=== PATIENT | male | born 1945 | race Caucasian/White ===

== ENCOUNTER → 2016-12-07 | Outpatient (CLI) | payer OTHER ==
[~2016-12-07] MED LIST: AMLO-110 PO; ASCO10003 PO; ASPI81TA28 PO; ATEN-173 PO; CALC3OIN TOP; FEXO1TAB46 PO; MULTTAB PO; OLOP0.1S2 OPB; OMEG12006 PO; POLYDRO OPB; SIMV20TA2 PO; TRIA3AER NAE; [UNRECOGNIZED DRUG - OTHER] TOP
--- NOTE | 2016-12-07 16:17 | DIAGNOSTIC IMAGING REPORT ---
MRI THE RIGHT KNEE NO CONTRAST CLINICAL HISTORY: Right knee pain COMPARISON STUDY: Outside radiograph dated 11/08/2016 FINDINGS: Imaging was performed in the sagittal, coronal, and axial planes. There is no evidence of a pathologic joint effusion. There are no areas of marrow edema to indicate occult fracture or bone bruise. The anterior and posterior cruciate ligaments appear intact. The medial and lateral collateral ligaments appear intact. There are degenerative changes present within the patellofemoral joint with chondrosis of the medial patellar facet. No tears of the lateral meniscus are visualized. There is a horizontal tear involving the posterior horn the medial meniscus. IMPRESSION: 1. Tear of the posterior horn the medial meniscus 2. Degenerative changes within the patellofemoral joint with chondrosis of the medial patellar facet Electronically signed by: Dale De Santiago M.D. 12/07/2016 4:16 PM Dictated Date/Time: 12/07/2016 4:12 PM
== END | disposition home or self-care (01) ==
LOC: C.MRIBC 15:02
PROVIDERS: ATTEND Orthopaedic Surgery
DX: S83.241A Other tear of medial meniscus, current injury, right knee, initial encounter (principal); X58.XXXA Exposure to other specified factors, initial encounter

== ENCOUNTER 2023-03-03 09:09 | Observation (INO) ==
--- NOTE | 2023-01-31 15:00 | PAT Medication Instructions ---
Medication Instructions Date of Service January 31, 2023 Home Medications azelastine 137 mcg (0.1 %) nasal spray aerosol 2 spray intranasal BID budesonide 0.5 mg/2 mL suspension for nebulization (Pulmicort) 0.5 mg inhalation BID calcitriol 3 mcg/gram topical ointment 1 applic topical BID PRN Rash clobetasol 0.05 % topical ointment (Temovate) 1 applic topical BID PRN Rash fluorouracil 5 % topical cream (Efudex) 1 applic topical BID PRN Skin Irritation fluticasone propionate 50 mcg/actuation nasal spray,suspension (Flonase Allergy Relief) 1 spray intranasal BID PRN Allergy Symptoms latanoprost 0.005 % eye drops (Xalatan) 1 drp ophthalmic (eye) QPM light mineral oil 1 %-mineral oil 4.5 % (PF) eye drops in dropperette (Soothe XP (PF)) 1 drp ophthalmic (eye) BID PRN Dry Eye(S) olopatadine 0.1 % eye drops 1 drp ophthalmic (eye) BID PRN Dry Eye(S) sertraline 50 mg tablet (Zoloft) 50 mg PO QAM simvastatin 20 mg tablet 20 mg PO QPM Flax Seed Oil 1,000 mg PO QAM acitretin 10 mg capsule 10 mg PO UD amlodipine 5 mg tablet 5 mg PO QAM atenolol 25 mg tablet 25 mg PO QAM fexofenadine 180 mg tablet 180 mg PO QAM vitamin B complex 1 tab PO QAM MEDICATION INSTRUCTIONS: Continue as directed azelastine 137 mcg (0.1 %) nasal spray aerosol 2 spray intranasal BID budesonide 0.5 mg/2 mL suspension for nebulization (Pulmicort) 0.5 mg inhalation BID calcitriol 3 mcg/gram topical ointment 1 applic topical BID PRN Rash (do not use after bathing prior to surgery) clobetasol 0.05 % topical ointment (Temovate) 1 applic topical BID PRN Rash (do not use after bathing prior to surgery) fluorouracil 5 % topical cream (Efudex) 1 applic topical BID PRN Skin Irritation (do not use after bathing prior to surgery) fluticasone propionate 50 mcg/actuation nasal spray,suspension (Flonase Allergy Relief) 1 spray intranasal BID PRN Allergy Symptoms latanoprost 0.005 % eye drops (Xalatan) 1 drp ophthalmic (eye) QPM light mineral oil 1 %-mineral oil 4.5 % (PF) eye drops in dropperette (Soothe XP (PF)) 1 drp ophthalmic (eye) BID PRN Dry Eye(S) olopatadine 0.1 % eye drops 1 drp ophthalmic (eye) BID PRN Dry Eye(S) ASK your prescriber and surgeon acitretin 10 mg capsule 10 mg PO UD STOP taking 2 weeks before surgery Flax Seed Oil 1,000 mg PO QAM DO NOT take the morning of surgery fexofenadine 180 mg tablet 180 mg PO QAM vitamin B complex 1 tab PO QAM Take morning of surgery With a small sip of water, OTHERWISE NOTHING TO EAT OR DRINK AFTER MIDNIGHT: amlodipine 5 mg tablet 5 mg PO QAM atenolol 25 mg tablet 25 mg PO QAM sertraline 50 mg tablet (Zoloft) 50 mg PO QAM Take evening before surgery simvastatin 20 mg tablet 20 mg PO QPM Other Notes If you have any questions please call us at [phone] or [phone] or [phone] or [phone]
--- NOTE | 2023-02-07 13:24 | Anesthesiology Consultation ---
Date of Service February 07, 2023 Assessment & Plan (1) Encounter for pre-operative examination: - Infectious disease screening: Per assessment on 02/07/23: No known infectious disease contacts or current infectious disease symptoms. No noted Covid positive test result in past 90 days. - Outpatient joint pathway: Per OR booking comments, plan for outpatient joint program. Patient seen at [facility] 02/07/23. Patient motivated with good functional status. Post-op home support (general good health). Case reviewed with Dr. Andujar. Patient is not recommended candidate to proceed as outpatient joint pathway from anesthesia perspective (age). Patient and Vaishnavi at surgeon's office made aware. Chart Review Chart Review: Acceptable Risk for Surgery and Patient seen in Pre Admission Testing Teaching & Discussion Pre-Anesthesia Teaching/Discussion Notes: Instructed NPO after midnight before surgery,except medications with 15 cc of water. Medication instructions provided according to the [facility] guidelines. History Surgery Operation Date: 03/03/23 12:20 Proposed Procedures p OP: Right Unicompartment Knee Arthroplasty vs Right Total Knee Arthroplasty - Suraj Su DO Height/Weight Height: 5 ft 8 in Weight: 87.9 kg Allergies Allergy/AdvReac Type Severity Reaction Status Date / Time SILK SUTURES Allergy Severe Severe Uncoded 02/06/23 13:11 skin reaction Medications Home Medications Medication Instructions Recorded Confirmed Last Taken azelastine 137 mcg (0.1 %) nasal 2 spray intranasal BID 01/04/23 01/17/23 Unknown spray aerosol budesonide 0.5 mg/2 mL suspension 0.5 mg inhalation BID 01/04/23 01/17/23 Unknown for nebulization (Pulmicort) calcitriol 3 mcg/gram topical 1 applic topical BID PRN Rash 01/04/23 01/17/23 Unknown ointment clobetasol 0.05 % topical ointment 1 applic topical BID PRN Rash 01/04/23 01/17/23 Unknown (Temovate) fluorouracil 5 % topical cream 1 applic topical BID PRN Skin 01/04/23 01/17/23 Unknown (Efudex) Irritation fluticasone propionate 50 1 spray intranasal BID PRN Allergy 01/04/23 01/17/23 Unknown mcg/actuation nasal Symptoms spray,suspension (Flonase Allergy Relief) latanoprost 0.005 % eye drops 1 drp ophthalmic (eye) QPM 01/04/23 01/17/23 Unknown (Xalatan) light mineral oil 1 %-mineral oil 1 drp ophthalmic (eye) BID PRN Dry 01/04/23 01/17/23 Unknown 4.5 % (PF) eye drops in Eye(S) dropperette (Soothe XP (PF)) olopatadine 0.1 % eye drops 1 drp ophthalmic (eye) BID PRN Dry 01/04/23 01/17/23 Unknown Eye(S) sertraline 50 mg tablet (Zoloft) 50 mg PO QAM 01/04/23 01/17/23 Unknown simvastatin 20 mg tablet 20 mg PO QPM 01/04/23 01/17/23 Unknown Flax Seed Oil 1,000 mg PO QAM 01/17/23 01/17/23 Unknown acitretin 10 mg capsule 10 mg PO UD 01/17/23 01/17/23 Unknown amlodipine 5 mg tablet 5 mg PO QAM 01/17/23 01/17/23 Unknown atenolol 25 mg tablet 25 mg PO QAM 01/17/23 01/17/23 Unknown fexofenadine 180 mg tablet 180 mg PO QAM 01/17/23 01/17/23 Unknown vitamin B complex 1 tab PO QAM 01/17/23 01/17/23 Unknown Past Medical History Medical History Chronic sinusitis Depression Fatty liver Glaucoma Heart valve regurgitation Echo 05/2022: Mild AR/MR/TR HTN (hypertension) Hx of basal cell carcinoma Hx of squamous cell carcinoma Hyperlipidemia Osteoarthritis Psoriasis Exercise / Class Metabolic Activity II 4-5 Yardwork/Stairs/Walk up hill (one FS (no CP, no SOB)) Past Family History Family History Other No family history of adverse response to anesthesia Past Surgical History Surgical History History of Achilles tendon repair History of Mohs micrographic surgery for skin cancer multiple Hx of bilateral cataract extraction Hx of colonoscopy Hx of removal of cyst finger Past Anesthesia History No Hx of Anesthesia Complications and No Family Hx of Anesthesia Complications History of PONV No Hx of PONV and No Hx of Motion Sickness Social History Smoking Status: Never smoker Do You Dip or Chew Tobacco: No Hx Alcohol Use: Yes (2-3 per day) Alcohol type: beer, wine and hard liquor Hx Substance Use: No substance use type: does not use Review of Systems Chronic sinus issues- unchanged. Patient denies chest pain, shortness of breath, dyspnea on exertion, fever, chills, cough, wheezing, palpitations. Physical Exam Vital Signs VITALS BP 126/72 P 56 TEMP 97.7 SP02 96%RA RESP 18 PHYSICAL Full cervical extension range of motion. Full TMJ range of motion. TMD 3.5 finger breaths Mallampati Score 2 Dentition: intact, + caps Lungs: clear throughout to auscultation Cardiac: regular rate and rhythm, no murmurs noted Spine: normal Carotid arteries: negative bruit Extremities: no LE edema Lab Results Anesthesia Preop Results Results Anesthesia Widget: WBC 6.63 K/ul (4.8-10.8) 02/07/23 Hgb 14.8 g/dl (14.0-18.0) 02/07/23 Hct 42.4 % (42.0-52.0) 02/07/23 Plt 180 K/uL (130-400) 02/07/23 Na 136 mmol/L (136-145) 02/07/23 K 4.4 mmol/L (3.5-5.1) 02/07/23 Cl 102 mmol/L (98-107) 02/07/23 CO2 28 mmol/L (21-32) 02/07/23 BUN 20 mg/dl (6-23) 02/07/23 Creat 0.82 mg/dl (0.6-1.4) 02/07/23 Glucose Level 99 mg/dl (70-99(Fasting)) 02/07/23 PT 11.3 Seconds (9.0-12.0) 02/07/23 PTT 25.8 Seconds (21.0-31.0) 02/07/23 INR 1.0 (0.9-1.1) 02/07/23 Blood Type A Positive 02/07/23 Antibody Screen NEGATIVE 02/07/23 Testing Electrocardiogram Date: 02/07/23 SB with first degree AVB with PACs at 52bpm. "Otherwise normal ECG" Chest X-Ray Date: 05/31/22 Findings: + NAD Echocardiogram Date: 05/05/22 LVEF 55-59%. Mildly increased concentric LV wall thickness. Grade 1 diastolic dysfunction. Mild AR/MR/TR. Mildly enlarged aortic root. Stress Test Date: 08/02/17 Type: exercise Stress echo negative for inducible ischemia. Exercise capacity is above average. 95% MPHR. 10.1 METS. LVEF 55-59%. Grade I DD. Mild AR.
[~2023-03-03 09:09] MED LIST changes: +ACETAMINOPHEN 500 MG TAB PO SCH; -AMLO-110 PO; -ASCO10003 PO; -ASPI81TA28 PO; -ATEN-173 PO; +BUPIVACAINE 0.25% PF 30 ML VIAL ONE; +BUPIVACAINE 0.5 % 5 MG/1 ML PF 10ML VIAL ONE; -CALC3OIN TOP; +DEXAMETHASONE SOD INJ 4 MG/ML VIAL ONE; +EPINEPHrine INJ 1 MG/ML AMP ONE; +FAMOTIDINE 20 MG TAB PO SCH; -FEXO1TAB46 PO; +GABAPENTIN 300 MG CAP PO SCH; +LR 500ML BOLUS, THEN 15ML/HR IV SCH; +LR 60ML/HR IV SCH; -MULTTAB PO; -OLOP0.1S2 OPB; -OMEG12006 PO; +ORTHO JOINT MIX INFIL SCH; -POLYDRO OPB; -SIMV20TA2 PO; +TRANEXAMIC ACID 1,000 MG **IV Intra-op IV SCH; +TRANEXAMIC ACID 1,000 MG **IV Pre-op IV SCH; -TRIA3AER NAE; -[UNRECOGNIZED DRUG - OTHER] TOP; +ceFAZolin 2000MG 2,000 MG/15 ML SYR IV SCH; +dexAMETHasone 4 MG TAB PO SCH
--- NOTE | 2023-03-03 10:02 | History & Physical Bridge Note ---
Date of Service March 03, 2023 History & Physical Bridge Note I have examined the patient, reviewed the History & Physical and in the interval since the performance of the History & Physical I have noted the following changes of clinical significance: no changes noted
[2023-03-03] MEDS ORDERED: fentaNYL citrate PF 100 MCG/2 ML VIAL ONE (10:03)
[2023-03-03] MEDS ORDERED: MIDAZOLAM HCL 1 MG/ML 2ML VIAL ONE (10:03)
[2023-03-03] MEDS ORDERED: PROPOFOL IV EMULSION 10 MG/ML 20 ML VIAL IV ONE (10:06)
[2023-03-03] MEDS ORDERED: LIDOCAINE 2% 2 ML VIAL/AMP(20MG/ML) INFIL ONE (10:06)
[2023-03-03] MEDS ORDERED: ONDANSETRON INJ 2 MG/ML 2 ML VIAL IV PRN ×2 (10:19→14:34)
[2023-03-03] MEDS ORDERED: ePHEDrine sulfate 50 MG/ML AMP IV PRN (10:19)
[2023-03-03] MEDS ORDERED: PROMETHAZINE HCL 6.25 MG in SODIUM CHLORIDE 0.9% 50 ML IV PRN (10:19)
[2023-03-03] MEDS ORDERED: ATROPINE SULFATE 0.1 MG/ML 10ML SYR IV PRN (10:19)
[2023-03-03] MEDS ORDERED: fentaNYL citrate PF 100 MCG/2 ML VIAL IV PRN (10:19)
[2023-03-03] MEDS ORDERED: ORTHO JOINT ANESTHETIC ONE (10:30)
[2023-03-03] MEDS ORDERED: ONDANSETRON INJ 2 MG/ML 2 ML VIAL ONE (11:57)
[2023-03-03] MEDS ORDERED: ePHEDrine sulfate 50 MG/ML AMP ONE (12:02)
--- NOTE | 2023-03-03 12:46 | Operative Report ---
PG Post Operative Report Pre & Post Diagnosis Operation Date: 03/03/23 10:40 Pre-Op Diagnosis: Degenerative Joint Disease Right Knee Post-Op Diagnosis: Degenerative Joint Disease Right Knee I identified the patient and participated in the time-out.: Yes Procedure Operation Date: 03/03/23 10:40 Actual Procedures p Right Unicompartment Knee Arthroplasty(Right) - Suraj Su DO Surgeon Suraj Su DO Account Manager Suraj Zaman PA-C Estimated Blood Loss 30 Findings Consistent with Post-Op Diagnosis Specimens Right femoral and tibial bone Description of Procedure Implants used: I used a Estephania persona partial knee replacement with a size 5 femoral component, a size E tibial component, and a 9 mm polyethylene spacer. On March 03, 2023 Topher arrived at [facility] for the above procedure. He was seen in the preoperative holding area and the operative extremity was identified and signed. He was given a preoperative antibiotic, a regional anesthetic, and a spinal anesthetic.. He was taken back to the operating room and laid on table supine position. He was given basic sedation. The right knee was prepped and draped in sterile fashion. A timeout was done. The patient and the operative extremity was properly identified. A midline incision was made just medial to the patella. Dissection was taken down through the fascia. A small mid vastus arthrotomy was used. The medial retinaculum was released. A small portion of fat pad was excised. The medial aspect of the knee was exposed. There was severe osteoarthritis in the medial compartment. The ACL was intact. There was no arthritis in the lateral or patellofemoral compartments. A decision was made to proceed with a partial knee replacement. An external tibial guide was used and 4 mm was resected off the proximal tibia. The knee was then brought to full extension. A distal femoral cutting block was then screwed into place. The distal femur was then resected. The knee was then brought into flexion. A 5 mm femoral implant seem to be the best fit. The cutting block was pinned into place. 2 peg holes were drilled followed by posterior and chamfer cuts. The tibia was then measured to be a size E. The tibial cut guide was then impacted in the place. 2 peg holes were then drilled. The femoral implant was then impacted into place. A size 9 mm polyethylene insert seem to be the best fit. The knee was brought through full range of motion and felt to be stable. All trials were then removed. The final size E tibial component and size 5 femoral component were cemented in place with Palacos cement. Once cement had hardened a 9 mm polyethylene spacer was then snapped into place. The knee was brought through full range of motion and felt to be stable. The surrounding soft tissues were injected with an orthopedic pain control cocktail. The extensor mechanism was closed with #1 Vicryl. Skin was closed with 2-0 Vicryl, 3 oh V-Loc suture, and erica. He was then placed in a soft compressive dressing. He was then taken to the postanesthesia care unit in stable condition. He tolerated the procedure well. Suraj Zaman PA-C, was present for the entire procedure. He was critical for patient positioning, prepping, draping, retraction exposure, wound closure and application of sterile dressing. I attest to the content of the Intraoperative Record and any orders documented therein. Any exceptions are noted below.
--- NOTE | 2023-03-03 13:38 | XRay Report ---
XR knee RT 1 or 2V routine HISTORY: 78 years-old Male Surgical Post Op medial compartment hemiarthroplasty COMPARISON: 08/31/2022 TECHNIQUE: 2 views of the right knee FINDINGS: Medial compartment hemiarthroplasty. Anterior midline skin erica with expected postoperative soft t issue swelling and deep tissue air. Chondrocalcinosis with mild lateral and patellofemoral compartmen t osteoarthritis. Arterial calcifications. IMPRESSION: Medial compartment hemiarthroplasty with expected postoperative changes. ACT 112: Negative or not required by law. The above report was generated using voice recognition software. It may contain grammatical, syntax o r spelling errors. Electronically signed by: George Quiroz M.D. 03/03/2023 1:36 PM
--- NOTE | 2023-03-03 13:38 | Anesthesiology Progress Note ---
Date of Service March 03, 2023 Anesthesia Post Procedure Vital Signs Vital Signs: Temp Pulse Pulse Resp BP Pulse Ox O2 Del Method 03/03/23 13:30 36.3 C L 55 L 17 116/61 98 Nasal Cannula 03/03/23 13:20 56 L 16 116/63 97 Oxymask 03/03/23 13:10 56 L 12 115/62 97 Oxymask 03/03/23 13:04 36.2 C L 62 18 137/66 98 Oxymask 03/03/23 09:36 36.7 C 54 L 20 143/85 H 99 Room Air O2 Flow Rate 03/03/23 13:30 2 03/03/23 13:20 2 03/03/23 13:10 4 03/03/23 13:04 4 03/03/23 09:36 Pain Intensity Right Knee: Pain Intensity: 0 Transfer of Care Handoff Completed per policy Notes Mental Status: alert / awake / arousable and participated in evaluation Nausea / Vomiting: adequately controlled Pain: adequately controlled Airway Patency, RR, SpO2: stable & adequate BP & HR: stable & adequate Hydration State: stable & adequate Neuraxial Anesthesia: was administered and sensory block is resolving Anesthetic Complications: no major complications apparent and Pt Satisfied with anesthetic care
[2023-03-03] MEDS ORDERED: oxyCODONE HCL IR 5 MG TAB (IMMEDIATE RELEASE) PO PRN (14:34)
[2023-03-03] MEDS ORDERED: FLUTICASONE PROPIONATE NA SPR 16 GM BTL PRN (14:34)
[2023-03-03] MEDS ORDERED: CALCITRIOL 3 MCG/GM TOP PRN (14:34)
[2023-03-03] MEDS ORDERED: HYDROmorphone INJ 0.5 MG/0.5 ML SYR IV PRN (14:34)
[2023-03-03] MEDS ORDERED: MAGNESIUM HYDROXIDE SUSP 30 ML UDC PO PRN (14:34)
[2023-03-03] MEDS ORDERED: bisacodyL 10 MG SUPP PR PRN (14:34)
[2023-03-03] MEDS ORDERED: CLOBETASOL PROPIONATE 0.05% OINT 15 GM TUBE EXT PRN (14:34)
[2023-03-03] MEDS ORDERED: NALOXONE HCL 0.4 MG/1 ML VIAL/CARP IV PRN (14:34)
[2023-03-03] MEDS ORDERED: METOCLOPRAMIDE HCL INJ 5 MG/ML 2 ML VIAL IV PRN (14:34)
[2023-03-03] MEDS: SODIUM CHLORIDE 0.9% 1,000 ML IV SCH (15:07)
[2023-03-03] MEDS: ACETAMINOPHEN 500 MG TAB PO SCH ×2 (15:09→20:35)
[2023-03-03] MEDS: KETOROLAC TROMETHAMINE 15 MG/ML VIAL IV SCH ×2 (15:09→20:34)
[2023-03-03] MEDS: OLOPATADINE 0.1% SCH ×2 (15:51→23:37)
[2023-03-03] MEDS: [UNRECOGNIZED DRUG - REMARK] SCH ×2 (15:51→23:37)
[2023-03-03] MEDS: ceFAZolin 2000MG 2,000 MG/15 ML SYR IV SCH (18:43)
[2023-03-03] MEDS: BUDESONIDE 0.5 MG/2 ML VIAL (PULMICORT) INH SCH (20:06)
[2023-03-03] MEDS: DOCUSATE SODIUM 100 MG CAP PO SCH (20:34)
[2023-03-03] MEDS: AZELASTINE HCL 0.1% NASAL 200 SPRAYS/27,400 MCG BTL SCH (20:35)
[2023-03-03] MEDS: ASPIRIN 81 MG ECTAB PO SCH (20:36)
[2023-03-03] MEDS ORDERED: SENNA 8.6 MG TAB PO SCH (21:00)
[2023-03-03] MEDS ORDERED: SIMVASTATIN 20 MG TAB PO SCH (21:00)
[2023-03-03] MEDS ORDERED: LATANOPROST 0.005% OP SOLN 2.5 ML BTL OP SCH (21:00)
[2023-03-04] MEDS: SODIUM CHLORIDE 0.9% 1,000 ML IV SCH (01:37)
[2023-03-04] MEDS: ceFAZolin 2000MG 2,000 MG/15 ML SYR IV SCH (03:26)
[2023-03-04] MEDS: KETOROLAC TROMETHAMINE 15 MG/ML VIAL IV SCH ×2 (03:26→08:33)
[2023-03-04] MEDS: ACETAMINOPHEN 500 MG TAB PO SCH (05:12)
--- NOTE | 2023-03-04 07:42 | Orthopedic Progress Note ---
Date of Service March 04, 2023 Assessment & Plan (1) Status post right partial knee replacement: Overall he is doing very well. He is not having much pain in the right knee. He will be seen by physical therapy today for ambulation and range of motion exercises. He is on aspirin for DVT prophylaxis. The nursing staff can change his dressing after physical therapy today. He can be discharged home later today. He will follow-up orthopedics in 2 weeks. Michael Vu was seen and examined at bedside this morning. Overall he is doing very well. He is not having much pain in the right knee. He has been up and ambulating to the bathroom. He has no complaints.. Review of Systems All systems reviewed & are unremarkable except as noted in HPI & below. Physical Exam On physical examination of the right knee, the dressing is clean and dry. His leg is out full extension. He has active dorsiflexion plantarflexion of the right ankle.. Results & Data Results & Data Laboratory Results . Diagnostic Findings Postoperative x-rays of the right knee show the prosthesis to be in anatomic alignment without any evidence of fracture complication, or loosening. PG Care Time/CCT Total # of Minutes Spent Total Time Spent with Patient: Total time spent is greater than 50% in coordination of care (as documented) at patient's floor/unit and/or counseling patient: Coding Level of Care Code 26272 Post Operative Follow-Up Diagnoses Status post right partial knee replacement Z96.651
--- NOTE | 2023-03-04 07:43 | Discharge Summary ---
Date of Service March 04, 2023 Principal Diagnosis Same as "Discharge Diagnosis" noted below under Discharge Instructions. Discharge Exam On physical examination of the right knee, the dressing is clean and dry. His leg is out full extension. He has active dorsiflexion plantarflexion of the right ankle.. Discharge Data Procedures Performed Operation Date: 03/03/23 10:40 Actual Procedures p Right Unicompartment Knee Arthroplasty(Right) - Suraj Su DO Ordered Studies 03/03/23 05:00 US - OR guided needle placemen Routine Hospital Course (1) Status post right partial knee replacement: On March 03, 2023 Horace arrived at [facility] and underwent a partial knee replacement without complication. Postoperatively he was started on aspirin for DVT prophylaxis and transferred to the general orthopedic floors. His hospital course was uneventful. On postop day #1, his vital signs were stable and his pain was well controlled. He was able to participate well with physical therapy doing ambulation and range of motion exercises. He was then discharged home. He will follow-up with orthopedics in 2 weeks. PG Care Time/CCT Total # of Minutes Spent Total Time Spent with Patient: Total time spent is greater than 50% in coordination of care (as documented) at patient's floor/unit and/or counseling patient: Discharge Plan Discharge Items Patient Disposition: Home - Home Health Services Reason For Visit: POST OP Discharge Diagnosis: Right partial knee replacement Activity: Per Instructions section Non-emergency contact: Surgeon Call non-emergency contact if: your wound has increased redness and your wound has increased drainage Follow-up/Referrals: Vickey Ray MD [Primary Care Provider] - Diet: Regular Addtl Attending Provider Instructions: Activity and Therapy Recommendations: * If you are using [facility] then therapy will be provided at your home until they feel you have accomplished all of your goals. * If you are using [facility] then Physical Therapy will be provided until they feel you are ready to start Outpatient Physical Therapy. * If you are not using home therapy then Outpatient Physical Therapy should start about 3-5 days from your day of surgery. Therapy will last about 6-10 weeks * It is important not to put a pillow under your knee when you are relaxing or sleeping. It is just as important to make sure you are getting your knee perfectly straight as it is to regain your knee bend. * You were shown a series of exercises in the hospital. Do these exercises three times each day including the exercises you were shown in physical therapy. * Get up and walk several times each day. For the first four weeks, try not to stand or walk for more than one hour at a time. If you do stand or walk for more than one hour, you will not hurt anything, but your leg will likely swell. * As you feel comfortable, you may change from the walker or crutches to a cane and then to independent walking. Medications: * Narcotic You will likely be sent home from the hospital with a prescription for the narcotic pain medication that worked best throughout your stay. * Aspirin Most patients will be required to take Aspirin 81mg twice a day for 6 weeks after surgery. This is obtained [id number] and a prescription is not necessary. * Cefadroxil -take the antibiotic twice a day for 10 days to help prevent infections. * Other medications may be prescribed for specific circumstances. If you have any questions, please call the office at . * Resume previous home medications unless otherwise instructed TEDs/Elastic Stockings: The white elastic stockings help limit swelling and prevent blood clots from forming in your legs.~ The more you wear them, the more they work. Wear them for six weeks. Dressing Care: The dressing can be changed after physical therapy on postop day #1. Daily dry dressing changes for a few days, especially if the incision is still draining some. If the incision is not draining then you may leave the erica open to air. If there is a little bit of drainage or if the erica are getting stuck on your clothing then cover the incision with a dry dressing. The erica will be removed at your 2 week follow-up appointment. Showering: You may shower 5 days from the day of surgery as long as the incision is no longer draining. You may shower with the erica exposed. Let soapy water run over the erica and pat them dry. Do not scrub or soak the incision. Things To Watch For: * Drainage from the incision site that occurs more than one week after your surgery. * Increased redness at the incision site. * Fever above 102 degrees Fahrenheit. * Unusual chest pain or shortness of breath. * Call [facility] at with any of the above problems Follow-Up Visit: Follow-up with Dr. Su's PA (Suraj Zaman) 2-3 weeks after your day of surgery. He will remove your erica and answer any questions. If you have any additional questions or concerns, Dr Su is usually in the office at the same time and will be available An appointment was probably scheduled when you signed-up for surgery in the office. If you have any questions call Office Instructions: More detailed instructions as well as Frequently Asked Questions were provided in a folder by our office when you signed-up for surgery. Please review these instructions when you get home. If you have any further questions or concerns, please feel free to call the office at [phone] Pending Studies at Discharge: No Stand-Alone Forms: My [facility] Medications and DC Order Prescriptions: New oxycodone 5 mg Tablet 5 mg PO Q4H PRN (Reason: pain) Qty: 30 0RF cefadroxil 500 mg capsule 500 mg PO BID 10 Days Qty: 20 0RF aspirin 81 mg Tablet,Delayed Release (Dr/Ec) 81 mg PO BID 42 Days Qty: 0 0RF Continued azelastine 137 mcg (0.1 %) aerosol,spray 2 spray intranasal BID Rx Instructions: administer into each nostril budesonide [Pulmicort] 0.5 mg/2 mL suspension for nebulization 0.5 mg inhalation BID calcitriol 3 mcg/gram ointment 1 applic topical BID PRN (Reason: Rash) clobetasol [Temovate] 0.05 % ointment 1 applic topical BID PRN (Reason: Rash) fluorouracil [Efudex] 5 % cream 1 applic topical BID PRN (Reason: Skin Irritation) fluticasone propionate [Flonase Allergy Relief] 50 mcg/actuation spray,suspension 1 spray intranasal BID PRN (Reason: Allergy Symptoms) Rx Instructions: administer into each nostril latanoprost [Xalatan] 0.005 % drops 1 drp ophthalmic (eye) QPM olopatadine 0.1 % drops 1 drp ophthalmic (eye) BID PRN (Reason: Dry Eye(S)) Rx Instructions: separate doses by at least 6-8 hours sertraline [Zoloft] 50 mg tablet 50 mg PO QAM simvastatin 20 mg tablet 20 mg PO QPM Soothe XP (PF) 1-4.5 % dropperette 1 drp ophthalmic (eye) BID PRN (Reason: Dry Eye(S)) atenolol 25 mg tablet 25 mg PO QAM fexofenadine 180 mg Tablet 180 mg PO QAM amlodipine 5 mg tablet 5 mg PO QAM vitamin B complex Tablet 1 tab PO QAM Flax Seed Oil 1,000 mg PO QAM acitretin 10 mg capsule 10 mg PO UD Rx Instructions: once every 3 days Admission Data Admit Date/Time: 03/03/23 13:03 Attending Provider: Suraj Su Admit Provider: Suraj Su Primary Care Provider: Vickey Ray
[2023-03-04] MEDS: BUDESONIDE 0.5 MG/2 ML VIAL (PULMICORT) INH SCH (07:50)
[2023-03-04] MEDS ORDERED: dexAMETHasone 4 MG TAB PO SCH (08:00)
[2023-03-04] MEDS: [UNRECOGNIZED DRUG - REMARK] SCH (08:07)
[2023-03-04] MEDS: OLOPATADINE 0.1% SCH (08:07)
[2023-03-04] MEDS: AZELASTINE HCL 0.1% NASAL 200 SPRAYS/27,400 MCG BTL SCH (08:31)
[2023-03-04] MEDS: ASPIRIN 81 MG ECTAB PO SCH (08:32)
[2023-03-04] MEDS: DOCUSATE SODIUM 100 MG CAP PO SCH (08:32)
[2023-03-04] MEDS ORDERED: SERTRALINE HCL 50 MG TABLET PO SCH (09:00)
[2023-03-04] MEDS ORDERED: amLODIPine BESYLATE 5 MG TAB PO SCH (09:00)
[2023-03-04] MEDS ORDERED: MULTIVITAMIN TAB PO SCH (09:00)
[2023-03-04] MEDS ORDERED: ATENOLOL 25 MG TABLET PO SCH (09:00)
[2023-03-04] MEDS ORDERED: FEXOFENADINE HCL 180 MG TAB PO SCH (09:00)
--- OUTSIDE RECORDS SUMMARY | 2023-03-09 17:53 | External Medical Summary | Summary of Care ---
Author Name Unknown Organization [facility] Address [address] [place] [address] Phone [phone] Care Team Providers Care Headhunter Name Role Phone Vickey Ray MD Primary Care Provider + Reason for Visit * Reason Comments Skin Check Patient is here for FBSE. Patient stated no issues with skin other than top of ears but he also has psoriasis. Patient has history of skin cancer. Patient does have some concern with the Acitretin he said that his eyes are very dry and this medication causes them to be more dry and it blurs his vision. He also said his skin is very dry from it and he does moisturize often. Encounter Details Date Type Department Care Team Description 01/13/2023 Office Visit Dermatology [facility] [place] [address] [place] [address] Stephanie Huntley MD [address] [place] [address] Scar*; Hx of actinic keratosis; Hx of nonmelanoma skin cancer; Psoriasis Allergies Active Allergy Reactions Severity Noted Date Comments Dust Mite Extract 06/16/2014 sneezing Neomycin-Bacitracin Zn-Polymyx Rash Medium 07/22/2015 Other Allergy (See Comments) 06/16/2014 Seasonal, --sneezing, watery eyes documented as of this encounter (statuses as of 01/13/2023) Medications Medication Sig Dispensed Refills Start Date End Date Status PATANOL 0.1 % OP SOLN 1 drop each eye as needed for allergy 0 Active OMEGA 3 1000 MG PO CAPS Take by mouth . Takes one daily 0 08/28/2012 Active clobetasol propionate (TEMOVATE) 0.05 % ointmentIndications: Other psoriasis APPLY TOPICALLY TO AFFECTED AREA(S) TWO TIMES DAILY NEEDED 90 g 2 04/10/2017 Active latanoprost (XALATAN) 0.005 % ophthalmic solution 0 07/02/2018 Activ e Flaxseed, Linseed, (FLAX SEED OIL) 1000 MG Capsule Take 1 Capsule by mouth in the morning. 0 Active Artificial Tear Solution (SOOTHE XP) SOLN Instill into eye daily. 0 Active B-Complex/Vitamin C Oral Tablet (THERAPEUTIC B COMPLEX W/C) Take 1 Tablet by mouth in the morning. 0 02/24/2020 Active Fluorouracil 5 % External Cream (Efudex)Indications: Actinic keratosis apply to affected area on cheek nightly for 2 weeks 40 g 1 05/11/2020 Active Hydrocortisone (Perianal) 2.5 % External Cream (Procto-Med HC) Administer into the rectum 2 times a day. 30 g 1 06/10/2020 Active Calcitriol 3 MCG/GM External Ointment (Vectical)Indication s:Psoriasis apply daily as needed for psoriasis 100 g 3 07/29/2020 Active Fluticasone Propionate 50 MCG/ACT Nasal Suspension (Flonase) USE TWO SPRAYS IN EACH NOSTRIL ONCE DAILY 48 g 1 07/29/2021 Active Additional Information Patient not taking.Reported on 09/20/2022 Budesonide 0.5 MG/2ML Inhalation Suspension (Pulmicort) Place 1 ampule in 8 oz of saline and rinse the nose once a day as directed. 60 mL 12 10/29/2021 Active Ondansetron 8 MG Oral Tablet Disintegrating (Zofran)Indications: Nausea and vomiting, unspecified vomiting type Place on tongue 1 Tablet every 8 hours as needed for Nausea. dissolve on tongue. 14 Tablet 0 02/19/2022 Active Azelastine HCl 137 MCG/SPRAY Nasal Solution USE 2 SPRAYS IN BOTH NOSTRILS DAILY NEEDED FOR RHINITIS 90 mL 2 09/09/2022 Active Simvastatin 20 MG Oral Tablet (Zocor)Indications:H TN, goal below 140/90 TAKE 1 TABLET BY MOUTH AT BEDTIME 90 Tablet 2 09/09/2022 Active Acetaminophen 500 MG Oral Tablet (Tylenol)Indications :Chronic pain of right knee Take 2 Tablets by mouth every 12 hours as needed for Pain, Severe. 100 Tablet 0 09/20/2022 Active Atenolol 25 MG Oral Tablet (Tenormin)Indication s:HTN, goal below 140/90 TAKE 1 TABLET BY MOUTH DAILY 90 Tablet 3 11/11/2022 Active amLODIPine Besylate 5 MG Oral Tablet (Norvasc)Indications :HTN, goal below 140/90 TAKE 1 TABLET BY MOUTH DAILY 90 Tablet 3 11/11/2022 Active Acitretin 10 MG Oral CapsuleIndications:P soriasis TAKE 1 CAPSULE WITH FOOD, EVERY OTHER DAY 45 Capsule 1 12/15/2022 4 Active Sertraline HCl 50 MG Oral Tablet (Zoloft) 1 tablet daily 90 Tablet 1 12/19/2022 Active documented as of this encounter (statuses as of 01/13/2023) Active Problems Problem Noted Date Mild mitral regurgitation 05/06/2022 Moderate aortic regurgitation 10/06/2021 Fatty liver 03/04/2021 Diastolic dysfunction 03/04/2021 Hx of actinic keratosis 10/14/2019 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, in partial remission 01/25/2018 ANABELLA (generalized anxiety disorder) 01/25 Mixed rhinitis 09/20/2017 Seasonal allergic rhinitis due to pollen 09/20/2017 History of hemorrhoids 08/04/2017 IPMN (intraductal papillary mucinous omar plasm) 06/11/2014 Hyperlipidemia 02/11/2014 Psoriasis 02/18/2013 History of nonmelanoma skin cancer 02/18 Overview: 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, BCC L upper arm 06/2021 (Efudex), SCCIS L lateral cheek superior 06/2020 (Efudex), BCC vertex 10/2019, scapula 10/2019, SCCIS L jawline 10/2019, BCC L upper arm 2017, 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 BCC on left upper back - 2013, BCC on right upper back - 2013, BCC & SCC left taoist, back, jawline bilaterally, right neck (distant), others in past HTN, goal below 140/90 02/15/2011 documented as of this encounter (statuses as of 01/13/2023) Resolved Problems Problem Noted Date Resolved Date Mild aortic valve regurgitation 03/04/2021 10/06/2021 Blepharitis of both eyes 09/20/2017 020 Depression with anxiety 01/25/2017 01/26/20 18 Dyslipidemia, goal LDL below 130 02/15/2011 02/11/2014 Allergic rhinitis 02/15/2011 09/20/2017 Hemorrhoids, external without complications 01/2901/25/2017 documented as of this encounter (statuses as of 01/13/2023) Immunizations Name Administration Dates Next Due COVID-19 mRNA, LNP-s, No Pre serve, 2-Dose Series (Moderna) 02/22/2021,06/26/2020,05/29/2020 Covid-19, Mrna, Lnp-s, Pf, B ivalent, 30 Mcg, IM, 12 yrs and above (Pfizer) 11/18/2022 Pneumococcal Conjugate Vacc, 13 Valent (Prevnar) 08/12/2014 Pneumococcal Polysaccharide PPV23 (Pneumovax) 08/24/2015,01/29/2009 Season Influenza, Quad, PF, Adjuvanted, 65+ Yrs, IM (FLUAD) 01/08/2020 Seasonal Influenza, PF, 6 mo ns & Above, IM , (Flulaval) 01/25/2018 Seasonal Influenza, Quadriva lent Hd (Fluzone Hd) 01/10/2022 Seasonal Influenza, Quadriva lent Hd, 65+ Yrs 01/26/2021 Seasonal Influenza, Quadriva lent, No Preserve, IM 01/28/2016,02/16/2015 01/27/2017 Seasonal Influenza, Quadriva lent, No Preserve, Mdck 01/25/2017 Seasonal Influenza, Split, I IV3, With Preserve, Inj 02/11/2014,01/28/2013,01/26/2012,12/31 Seasonal Influenza, Trivalen t, Adjuvanted, 65+ yrs 01/30/2019 TDAP (age 10 and older)(Boostrix) 03/17/2014 Varicella Zoster Vaccine (Adult) 01/29/2010 Zoster Vaccine Recombinant (Shingrix) 04/14/2018 ,11/06/2017 documented as of this encounter Social History Tobacco Use Types Packs/Day Years Used Date Smoking Tobacco: Never Smokeless Tobacco: Never Alcohol Use Standard Drinks/Week Comments Yes 17.5 (1 standard drink = 0.6 oz pure alcohol) 2-3 drinks per day Alcohol Habits Answer Date Recorded How often do you have a drin k containing alcohol? 4 or more times a week 10/02/2019 How many drinks containing a lcohol do you have on a typical day when you are drinking? 1 or 2 10/02/2019 How often do you have six or more drinks on one occasion? Not asked Food Insecurity Answer Date Recorded Within the past 12 months, y ou worried that your food would run out before you got money to buy more. Never true 09/20/2022 Within the past 12 months, t he food you bought just didn't last and you didn't have money to get more. Never true 09/20/2022 Sex Assigned at Date Recorded Male 09/19/2018 8:17 AM E DT Job Start Date Occupation Industry Not on file Not on file Not on file documented as of this encounter Progress Notes * Stephanie Huntley MD - 01/13/2023 10:02 AM EDT SUBJECTIVE: History of Present Illness: Topher Rubin Jr. is a 77 year old male seen today for follow up - skin check. Date Last Appointment: 06/20/2022 (in office), Visit date not found (telemedicine) No new concerns. Acitretin is worsening his dry eye symptoms. Psoriasis has been under control. Has calcitriol and clobetasol at home. Hx AK and NMSC - SCC L cheek and preauricular 06/2022, BCC L upper arm 06/2021 (Efudex), SCCIS L lateral cheek superior 06/2020 (Efudex), BCC vertex 10/2019, scapula 10/2019, SCCIS L jawline 10/2019, BCC Lupper arm 2017, 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, BCC on left upper back - 2013, BCC on right upperback - 2013, BCC & SCC left taoist, back, jawline bilaterally, right neck (distant), others in past Hx Efudex Golfs, is my pt REVIEW OF SYSTEMS: SKIN: No other new or changing moles. HEME/LYMPH: No new or enlarging lumps or bumps. Dry eyes as above MEDICA TIONS: Current Outpatient Medications Medication Sig Dispense Refill PATANOL 0.1 % OP SOLN 1 drop each eye as needed for allergy OMEGA 3 1000 MG PO CAPS Take by mouth . Takes one daily clobetasol propionate (TEMOVATE) 0.05 % ointment APPLY TOPICALLY TO AFFECTED AREA(S) TWO TIMES DAILY NEEDED 90 g 2 latanoprost (XALATAN) 0.005 % ophthalmic solution Flaxseed, Linseed, (FLAX SEED OIL) 1000 MG Capsule Take 1 Capsule by mouth in the morning. Artificial Tear Solution (SOOTHE XP) SOLN Instill into eye daily. B-Complex/Vitamin C Oral Tablet (THERAPEUTIC B COMPLEX W/C) Take 1 Tablet by mouth in the morning. Fluorouracil 5 % External Cream (Efudex) apply to affected area on cheek nightly for 2 weeks 40 g 1 Hydrocortisone (Perianal) 2.5 % External Cream (Procto-Med HC) Administer into the rectum 2 times aday. 30 g 1 Calcitriol 3 MCG/GM External Ointment (Vectical) apply daily as needed for psoriasis 100 g 3 Fluticasone Propionate 50 MCG/ACT Nasal Suspension (Flonase) USE TWO SPRAYS IN EACH NOSTRIL ONCE DAILY (Patient not taking: Reported on 09/20/2022) 48 g 1 Budesonide 0.5 MG/2ML Inhalation Suspension (Pulmicort) Place 1 ampule in 8 oz of saline and rinse the nose once a day as directed. 60 mL 12 Ondansetron 8 MG Oral Tablet Disintegrating (Zofran) Place on tongue 1 Tablet every 8 hours as needed for Nausea. dissolve on tongue. 14 Tablet 0 Azelastine HCl 137 MCG/SPRAY Nasal Solution USE 2 SPRAYS IN BOTH NOSTRILS DAILY NEEDED FOR RHINITIS 90 mL 2 Simvastatin 20 MG Oral Tablet (Zocor) TAKE 1 TABLET BY MOUTH AT BEDTIME 90 Tablet 2 Acetaminophen 500 MG Oral Tablet (Tylenol) Take 2 Tablets by mouth every 12 hours as needed for Pain, Severe. 100 Tablet 0 Atenolol 25 MG Oral Tablet (Tenormin) TAKE 1 TABLET BY MOUTH DAILY 90 Tablet 3 amLODIPine Besylate 5 MG Oral Tablet (Norvasc) TAKE 1 TABLET BY MOUTH DAILY 90 Tablet 3 Acitretin 10 MG Oral Capsule TAKE 1 CAPSULE WITH FOOD, EVERY OTHER DAY 45 Capsule 1 Sertraline HCl 50 MG Oral Tablet (Zoloft) 1 tablet daily 90 Tablet 1 No current facility-administered medications for this visit. ALLERG IES: Neosporin [neomycin-bacitracin zn-polymyx], Dust mite extract, and Other allergy (see comments) OBJECTIVE: GEN: Healthy, alert, no distress, appears oriented, pleasant, and cooperative. SKIN: Detailed exam of hair, face including lids and lips, neck, chest, abdomen, back, bilateral upper ext. (arm, hand, fingers), bilateral lower ext. (leg, foot, toes), and palpation of scalp completed and are normal except: 1. Head/neck, upper body - scars 2. Back and upper arms have few scaly pink thin plaques, small ASSESS MENT/PLAN: 1. Scars - Hx NMSC - no evidence of recurrence Discussed sun protection with patient including proper use of sunscreens and protective clothing. ABCDs explained. 2. Psoriasis, guttate features, admixed in areas of photodamage - BSA: 1-3%, Special Site: None; Status: same. Occasional flares Pt would like to remain on acitretin but decrease to 10 mg every 3rd day instead of every other day, will monitor (pt on it for chemoprevention and psoriasis, wants to decrease with dry eye symptoms), due for labs with PCP this winter Follow-up: 6 months There were no barriers tolearning and no other pain was related to today's visit. The patient and/or person accompanying patient demonstrates understanding of the visit and treatment. Stephanie Huntley MD 01/13/2023 10:02 AM documented in this encounter Nursing Notes * Ute Arandasagar, RANJAN - 01/13/2023 9:37 AM EDT Patient identified by name and date of . Do you have any concerns about pain management for today's visit? No Living Will or Advance Directive for Health Care as noted on problem list. [facility] is a way you can talk to your provider online through e-mail. Would you like to sign up? I can activate it for you? ALREADY ACTIVE Chief Complaint Patient presents with Skin Check Patient is here for FBSE. Patient stated no issues with skin other than top of ears but he also haspsoriasis. Patient has history of skin cancer. Patient does have some concern with the Acitretin hesaid that his eyes are very dry and this medication causes them to be more dry and it blurs his vision. He also said his skin is very dry from it and he does moisturize often. documented in this encounter Plan of Treatment Upcoming Encounters Date Type Specialty Care Team Description 04/20/2023 Office Visit Internal Medicine Vickey Ray MD [address] [facility] [place] [place] [address] 07/17/2023 Office Visit Dermatology Vickey Ambrosio MD [address] [facility] [place] [address] Scheduled Procedures Name Priority Associated Diagnoses Date/Ti me ROBOTIC ARTHROPLASTY KNEE TOTAL Knee osteoarthritis COLONOSCOPY FLEXIBLE PROXIMAL DIAGNOSTIC Recall History of colon polyps Health Maintenance Due Date Last Done Comments GFR 05/31/2023 05/31/2022, 03/01, 03/05/2021, Additional history exists COLONOSCOPY-EVERY 3 YRS AGES 18-100 06/16/2023 06/16/2020, 06/16/2020, 02/02/2018, Additional history exists Depression Screening 09/21/2023 09/20/2022 DTaP,Tdap,and Td Vaccines (2 - Td or Tdap) 03/17/2024 03/17/2014 Albumin/Creatinine Ratio 10/06/2024 10/06/2021, 01/29 Pneumococcal Vaccine: 65+ Years Completed 08/24/2015, 08/12/2014, 01/29/2009 Zoster Vaccines Completed 04/14/2018, 12/2017, 01/29/2010 Hepatitis C Screening Completed 07/09/2021 COVID-19 Vaccine Completed 11/18/2022, , 06/26/2020, Additional history exists Influenza Vaccine (FLU shot) Completed 09/2022, 01/10/2022, 01/26/2021, Additional history exists GARDASIL-HPV IMMUNIZATION SERIES Aged Out No longer eligible based on patient's age to complete this topic Hepatitis B Aged Out No longer eligi ble based on patient's age to complete this topic MENINGOCOCCAL (MENACTRA/MENVEO) Aged Out No longer eligible based on patient's age to complete this topic documented as of this encounter Medical Devices Not on filedocumented as of this encounter Visit Diagnoses Diagnosis Scar- Primary Scar condition and fibrosis of skin Hx of actinic keratosis Personal history of diseases of skin and subcutaneous tissue Hx of nonmelanoma skin cancer Personal history of other malignant neoplasm of skin Psoriasis Other psoriasis documented in this encounter Care Teams Headhunter Relationship Specialty Start Date End Date Vickey Ray MD [address] [place] [address], [place] [address] PCP - General Internal Medicine 07/30/19 documented as of this encounter
--- OUTSIDE RECORDS SUMMARY | 2023-03-09 17:53 | External Medical Summary | Summary of Care ---
Author Name Unknown Organization [facility] Address [address] [place] [address] Phone [phone] Care Team Providers Care Navy Material Inspector Name Role Phone Vickey Vail MD Primary Care Provider + Reason for Visit * Reason Onset Date Comments Medication Refill 12/19/2022 Encounter Details Date Type Department Care Team Description 12/19/2022 Refill General Internal Medicine [facility] [address] [facility] [place] [id number] Vickey Vail MD [address] [place] [address] Allergies Active Allergy Reactions Severity Noted Date Comments Dust Mite Extract 06/16/2014 sneezing Neomycin-Bacitracin Zn-Polymyx Rash Medium 07/22/2015 Other Allergy (See Comments) 06/16/2014 Seasonal, --sneezing, watery eyes documented as of this encounter (statuses as of 02/06/2023) Medications Medication Sig Dispensed Refills Start Date End Date Status PATANOL 0.1 % OP SOLN 1 drop each eye as needed for allergy 0 Active OMEGA 3 1000 MG PO CAPS Take by mouth . Takes one daily 0 08/28/2012 Active clobetasol propionate (TEMOVATE) 0.05 % ointmentIndications :Other psoriasis APPLY TOPICALLY TO AFFECTED AREA(S) TWO [...] 02/24/2020 Active Fluorouracil 5 % External Cream (Efudex)Indications :Actinic keratosis apply to affected area on cheek nightly for 2 weeks 40 g 1 05/11/2020 Active Hydrocortisone (Perianal) 2.5 % External Cream (Procto-Med HC) Administer into the rectum 2 times a day. 30 g 1 06/10/2020 Active Calcitriol 3 MCG/GM External Ointment (Vectical)Indicatio ns:Psoriasis apply daily as needed for psoriasis 100 [...] Active Ondansetron 8 MG Oral Tablet Disintegrating (Zofran)Indications :Nausea and vomiting, unspecified vomiting type Place on tongue 1 Tablet every 8 hours as needed for Nausea. dissolve on tongue. 14 Tablet 0 02/19/2022 Active Azelastine HCl 137 MCG/SPRAY Nasal Solution USE 2 SPRAYS IN BOTH NOSTRILS DAILY NEEDED FOR RHINITIS 90 mL 2 09/09/2022 Active Simvastatin 20 MG Oral Tablet (Zocor)Indications: HTN, goal below 140/90 TAKE 1 TABLET BY MOUTH AT BEDTIME 90 Tablet 2 09/09/2022 Active Acetaminophen 500 MG Oral Tablet (Tylenol)Indication s:Chronic pain of right knee Take 2 Tablets by mouth every 12 hours as needed for Pain, Severe. 100 Tablet 0 09/20/2022 Active Atenolol 25 MG Oral Tablet (Tenormin)Indicatio ns:HTN, goal below 140/90 TAKE 1 TABLET BY MOUTH DAILY 90 Tablet 3 11/11/2022 Active amLODIPine Besylate 5 MG Oral Tablet (Norvasc)Indication s:HTN, goal below 140/90 TAKE 1 TABLET BY MOUTH DAILY 90 Tablet 3 11/11/2022 Active Acitretin 10 MG Oral CapsuleIndications: Psoriasis TAKE 1 CAPSULE WITH FOOD, EVERY OTHER DAY 45 Capsule 1 12/15/2022 12/15/19 24 Active Sertraline HCl 50 MG Oral Tablet (Zoloft) 1 tablet daily 90 Tablet 1 12/19/2022 Active Sertraline HCl 50 MG Oral Tablet (Zoloft) 1 tablet daily 90 Tablet 3 12/23/2021 12/20/19 23 Discontinue d(Refill) Acitretin 10 MG Oral CapsuleIndications: Psoriasis TAKE 1 CAPSULE BY MOUTH EVERY OTHER DAY WITH FOOD 45 Capsule 1 12/20/2021 12/21/19 23 documented as of this encounter (statuses as of 02/06/2023) Active Problems Problem Noted Date Mild mitral [...] back - 2013, BCC & SCC left orthodoxy, back, jawline bilaterally, right neck (distant), others in past HTN, goal below 140/90 02/15/2011 documented as of this encounter (statuses as of 02/06/2023) Resolved Problems Problem Noted Date Resolved Date Mild aortic valve regurgitation 03/04/2021 10/06/2021 Blepharitis of both eyes 09/20/2017 020 Depression with anxiety 01/25/2017 01/26/20 18 Dyslipidemia, goal LDL below 130 02/15/2011 02/11/2014 Allergic rhinitis 02/15/2011 09/20/2017 Hemorrhoids, external without complications 01/2901/25/2017 documented as of this encounter (statuses as of 02/06/2023) Immunizations Name Administration Dates Next Due COVID-19 mRNA, LNP-s, No Pre serve, 2-Dose Series (Moderna) 02/22/2021,06/26/2020,05/29/2020 COVID-19, MRNA-LNP, PF, 30 M CG/0.3 mL, 12 yrs and above, IM (Pfizer) 11/18/2022 Pneumococcal Conjugate Vacc, 13 Valent (Prevnar) 08/12/2014 Pneumococcal Polysaccharide PPV23 (Pneumovax) 08/24/2015,01/29/2009 SEASONAL INFLUENZA, PF, 6 M & Above, IM , (FLULAVAL or FLUZONE) 01/25/2018 Season Influenza, Quad, PF, Adjuvanted, 65+ Yrs, IM (FLUAD) 01/08/2020 Seasonal Influenza, Quadriva lent Hd (Fluzone Hd) [...] on file documented as of this encounter Miscellaneous Notes * Telephone Encounter - Vickey Vail MD - 12/19/2022 3:52 PM EDTSigned Prescriptions: Disp Refills Sertraline HCl 50 MG Oral Tablet (Zoloft) 90 Tab*1 Si tablet daily Authorizing Provider: VICKEY VAIL * Telephone Encounter - Liz Smith LPN - 12/19/2022 3:34 PM EDTPending Prescriptions: Disp Refills Sertraline HCl 50 MG Oral Tablet (Zoloft) 90 Tab*1 Si tablet daily * Telephone Encounter - Rocio Vinson - 12/19/2022 1:06 PM EDT Did you pend patient's preferred pharmacy and medication before forwarding?yes Pharmacy: [id number] Pending Prescriptions: Disp Refills Sertraline HCl 50 MG Oral Tablet (Zoloft) 90 Tab*3 Si tablet daily Last Visit: 09/20/2022 (in office), 08/23/2019 (telemedicine) Next Visit: 04/20/2023 If no future appointments scheduled, and last appointment is greater than a year ago, please schedule patient for a follow-up appointment Last date the medication was ordered: 12/23/21 Is this request for a controlled substance?No Urine Drug Screen:No results found for this or any previous visit. Patient Phone Numbers Labs: Lab Results Component Value Date/Time CREAT 0.8 05/31/2022 01:35 PM CREAT 0.8 02/25/2020 07:04 AM POTASSIUM 4.3 05/31/2022 01:35 PM POTASSIUM 5.0 02/25/2020 07:04 AM TSH 2.73 05/31/2022 01:35 PM TSH 3.60 02/18/2019 07:03 AM LDLCALC 135 (H) 03/11/2022 08:52 AM LDLCALC 116 02/25/2020 07:04 AM LDLDIRECT NOT APPLICABLE 02/25/2020 07:04 AM ALT 47 05/31/2022 01:35 PM ALT 42 02/25/2020 07:04 AM documented in this encounter Plan of Treatment Upcoming Encounters Date Type Specialty Care Team Description 04/20/2023 Office Visit Internal Medicine Vickey Vail MD [address] [place] [address] 07/17/2023 Office Visit Dermatology Vickey Ambrosio MD [address] [place] [address] Scheduled Procedures Name Priority Associated Diagnoses Date/Ti me COLONOSCOPY FLEXIBLE PROXIMAL DIAGNOSTIC Recall History of [...] 08/24/2015, 08/12/2014, 01/29/2009 Zoster Vaccines Completed 04/14/2018, 0712/2017, 01/29/2010 Hepatitis C Screening Completed 07/09/2021 COVID-19 [...] Not on filedocumented as of this encounter Care Teams Navy Material Inspector Relationship Specialty Start Date End Date Vickey Vail MD [address] [place] [address] PCP - General Internal Medicine 07/30/19 documented as of this encounter
--- OUTSIDE RECORDS SUMMARY | 2023-03-09 17:53 | External Medical Summary | Summary of Care ---
Author Name Unknown Organization [facility] Address [address] [place] [address] Phone [phone] Care Team Providers Care Skydiving Instructor Name Role Phone Vickey Ray MD Primary Care Provider + Encounter Details Date Type Department Care Team Description 01/03/2023 Specialty Pharmacy [facility], [address] [address] Medication, [place] [facility], [address] [address] Allergies Active Allergy Reactions Severity Noted Date Comments Dust Mite Extract 06/16/2014 sneezing Neomycin-Bacitracin Zn-Polymyx Rash Medium 07/22/2015 Other Allergy (See Comments) 06/16/2014 Seasonal, --sneezing, watery eyes documented as of this encounter (statuses as of 01/03/2023) Medications Medication Sig Dispensed Refills Start Date [...] EVERY OTHER DAY 45 Capsule 1 12/15/2022 Active Sertraline HCl 50 MG Oral Tablet (Zoloft) 1 tablet daily 90 Tablet 1 12/19/2022 Active documented as of this encounter (statuses as of 01/03/2023) Active Problems Problem Noted Date Mild mitral [...] of nonmelanoma skin cancer 02/18 Overview: Hx BCC L upper arm 06/2021 (Efudex), SCCIS L lateral cheek superior 06/2020 (Efudex), BCC vertex 10/2019, scapula 10/2019, SCCIS L jawline 10/2019, BCC L upper arm 2017, 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 BCC on left upper back - 2013, BCC on right upper back - 2013, BCC &SCC left [facility], back, jawline bilaterally, right neck (distant), others in past HTN, goal below 140/90 02/15/2011 documented as of this encounter (statuses as of 01/03/2023) Resolved Problems Problem Noted Date Resolved Date Mild aortic valve regurgitation 03/04/2021 10/06/2021 Blepharitis of both eyes 09/20/2017 020 Depression with anxiety 01/25/2017 01/26/20 18 Dyslipidemia, goal LDL below 130 02/15/2011 02/11/2014 Allergic rhinitis 02/15/2011 09/20/2017 Hemorrhoids, external without complications 01/2901/25/2017 documented as of this encounter (statuses as of 01/03/2023) Immunizations Name Administration Dates Next Due COVID-19 [...] as of this encounter Progress Notes * Alycia Augustin CPhT - 01/03/2023 10:32 AM EDT Prescribed medication: Medication: acitretin Shipment date: 01/09 Delivery method: Specialty Mail Location Medication Delivered too? [address] [facility] [phone] Alycia Augustin CPhT [facility] 01/03/2023,10:32 AM documented in this encounter Plan of Treatment Upcoming Encounters Date Type Specialty Care Team Description 01/13/2023 Office Visit Dermatology Stephanie Huntley MD [address] [place] [address] 04/20/2023 Office Visit Internal Medicine Vickey Ray MD [address] [place] [address] Scheduled Procedures Name Priority Associated Diagnoses Date/Ti me ROBOTIC ARTHROPLASTY KNEE TOTAL Knee osteoarthritis COLONOSCOPY FLEXIBLE PROXIMAL DIAGNOSTIC Recall History of colon polyps Health Maintenance Due Date Last Done Comments Influenza Vaccine (FLU shot) (#1) 2022 01/10/2022, 01/26/2021, 01/08/2020, Additional history exists GFR 05/31/2023 05/31/2022, 03/01, 03/05/2021, Additional history exists COLONOSCOPY-EVERY 3 YRS AGES 18-100 06/16/2023 06/16/2020, 06/16/2020, 02/02/2018, Additional history exists Depression Screening, Annual for Pts 12 and Over 09/21/2023 09/20/2022 DTaP,Tdap,and Td Vaccines (2 - Td or Tdap) 03/17/2024 03/17/2014 Albumin/Creatinine Ratio 10/06/2024 10/06/2021, 01/29 Pneumococcal Vaccine: 65+ Years Completed 08/24/2015, 08/12/2014, 01/29/2009 Zoster Vaccines Completed 04/14/2018, 12/2017, 01/29/2010 Hepatitis C Screening Completed 07/09/2021 COVID-19 Vaccine Completed 11/18/2022, , 06/26/2020, Additional history exists GARDASIL-HPV IMMUNIZATION SERIES Aged [...] filedocumented as of this encounter Care Teams Skydiving Instructor Relationship Specialty Start Date End Date Vickey Ray MD [address] [place] [id number] PCP - General Internal Medicine 07/30/19 documented as of this encounter
--- OUTSIDE RECORDS SUMMARY | 2023-03-09 17:53 | External Medical Summary | Summary of Care ---
Author Name Unknown Organization [facility] Address [address] [place] [address] Phone [phone] Care Team Providers Care Personnel Consultant Name Role Phone Vickey Vail MD Primary Care Provider + Reason for Visit * Reason Onset Date Comments Medication Refill 12/19/2022 Encounter Details Date Type Department Care Team Description 12/19/2022 Refill General Internal Medicine [facility] [address] [facility] [place] [id number] Vickey Vail MD [address] [place] [id number] Allergies Active Allergy Reactions Severity Noted Date Comments Dust Mite Extract 06/16/2014 sneezing Neomycin-Bacitracin Zn-Polymyx Rash Medium 07/22/2015 Other Allergy (See Comments) 06/16/2014 Seasonal, --sneezing, watery eyes documented as of this encounter (statuses as of 12/19/2022) Medications Medication Sig Dispensed Refills Start Date [...] on tongue. 14 Tablet 0 02/19/2022 Active Acitretin 10 MG Oral CapsuleIndications: Psoriasis TAKE 1 CAPSULE BY MOUTH EVERY OTHER DAY WITH FOOD 45 Capsule 1 12/20/2021 3 Active Azelastine HCl 137 MCG/SPRAY Nasal Solution [...] 1 tablet daily 90 Tablet 3 12/23/2021 3 Discontinu ed(Refill) documented as of this encounter (statuses as of 12/19/2022) Active Problems Problem Noted Date Mild mitral [...] upper back - 2013, BCC &SCC left buddhism, back, jawline bilaterally, right neck (distant), others in past HTN, goal below 140/90 02/15/2011 documented as of this encounter (statuses as of 12/19/2022) Resolved Problems Problem Noted Date Resolved Date Mild aortic valve regurgitation 03/04/2021 10/06/2021 Blepharitis of both eyes 09/20/2017 020 Depression with anxiety 01/25/2017 01/26/20 18 Dyslipidemia, goal LDL below 130 02/15/2011 02/11/2014 Allergic rhinitis 02/15/2011 09/20/2017 Hemorrhoids, external without complications 01/2901/25/2017 documented as of this encounter (statuses as of 12/19/2022) Immunizations Name Administration Dates Next Due COVID-19 mRNA, LNP-s, No Pre serve, 2-Dose Series (Moderna) 02/22/2021,06/26/2020,05/29/2020 Pneumococcal Conjugate Vacc, 13 Valent (Prevnar) 08/12/2014 [...] pharmacy and medication before forwarding?yes Pharmacy: [id number] [place] Pending Prescriptions: Disp Refills Sertraline HCl 50 [...] Office Visit Dermatology Stephanie Huntley MD [address] [place] [address] 04/20/2023 Office Visit Internal Medicine Vickey Vail MD [address] [place] [address] Scheduled Procedures Name Priority Associated Diagnoses Date/Ti me ROBOTIC ARTHROPLASTY KNEE TOTAL Knee osteoarthritis COLONOSCOPY FLEXIBLE PROXIMAL DIAGNOSTIC Recall History of colon polyps Health Maintenance Due Date Last Done Comments COVID-19 Vaccine (4 - Moderna series) 04/19/2021 02/22/2021, 06/26/2020, 05/29/2020 Influenza Vaccine (FLU shot) (#1) 2022 01/10/2022, [...] 12/2017, 01/29/2010 Hepatitis C Screening Completed 07/09/2021 GARDASIL-HPV IMMUNIZATION SERIES Aged Out No longer eligible based on patient's age to complete this topic Hepatitis B Aged Out No longer eligi ble based on patient's age to complete this topic MENINGOCOCCAL (MENACTRA/MENVEO) Aged Out No longer eligible based on patient's age to complete this topic documented as of this encounter Medical Devices Not on filedocumented as of this encounter Care Teams Personnel Consultant Relationship Specialty Start Date End Date Vickey Vail MD [address] [place] [address], [place] [phone] PCP - General Internal Medicine 07/30/19 documented as of this encounter
--- OUTSIDE RECORDS SUMMARY | 2023-03-09 17:54 | External Medical Summary | Summary of Care ---
Author Name Unknown Organization [facility] Address [address] [place] [address] Phone [phone] Care Team Providers Care Imaging Assistant Name Role Phone Vickey Ray MD Primary Care Provider + Encounter Details Date Type Department Care Team Description 12/06/2022 Telephone [facility]opa[facility] [address] [facility] [place] [address] Rigo Suarez, [address] [facility] [place] [address] Allergies Active Allergy Reactions Severity Noted Date Comments Dust Mite Extract 06/16/2014 sneezing Neomycin-Bacitracin Zn-Polymyx Rash Medium 07/22/2015 Other Allergy (See Comments) 06/16/2014 Seasonal, --sneezing, watery eyes documented as of this encounter (statuses as of 12/06/2022) Medications Medication Sig Dispensed Refills Start Date [...] as directed. 60 mL 12 10/29/2021 Active Sertraline HCl 50 MG Oral Tablet (Zoloft) 1 tablet daily 90 Tablet 3 12/23/2021 Active Ondansetron 8 MG Oral Tablet Disintegrating (Zofran)Indications: Nausea and vomiting, unspecified vomiting type Place on tongue 1 Tablet every 8 hours as needed for Nausea. dissolve on tongue. 14 Tablet 0 02/19/2022 Active Acitretin 10 MG Oral CapsuleIndications:P soriasis TAKE 1 CAPSULE BY MOUTH EVERY OTHER DAY WITH FOOD 45 Capsule 1 12/20/2021 3 Active Acitretin 10 MG Oral CapsuleIndications:P soriasis TAKE 1 CAPSULE WITH FOOD, EVERY OTHER DAY 45 Capsule 1 12/16/2021 3 Active Azelastine HCl 137 MCG/SPRAY Nasal [...] MOUTH DAILY 90 Tablet 3 11/11/2022 Active documented as of this encounter (statuses as of 12/06/2022) Active Problems Problem Noted Date Mild mitral [...] upper back - 2013, BCC &SCC left [facility], back, jawline bilaterally, right neck (distant), others in past HTN, goal below 140/90 02/15/2011 documented as of this encounter (statuses as of 12/06/2022) Resolved Problems Problem Noted Date Resolved Date Mild aortic valve regurgitation 03/04/2021 10/06/2021 Blepharitis of both eyes 09/20/2017 020 Depression with anxiety 01/25/2017 01/26/20 18 Dyslipidemia, goal LDL below 130 02/15/2011 02/11/2014 Allergic rhinitis 02/15/2011 09/20/2017 Hemorrhoids, external without complications 01/2901/25/2017 documented as of this encounter (statuses as of 12/06/2022) Immunizations Name Administration Dates Next Due COVID-19 mRNA, LNP-s, No Pre serve, 2-Dose Series (Moderna) 02/22/2021,06/26/2020,05/29/2020 Pneumococcal Conjugate Vacc, 13 Valent (Prevnar) 08/12/2014 Pneumococcal Polysaccharide PPV23 (Pneumovax) 08/24/2015,01/29/2009 Seasonal Influenza, Quadriva lent Hd (Fluzone Hd) 01/10/2022 Seasonal Influenza, Quadriva lent Hd, 65+ Yrs 01/26/2021 Seasonal Influenza, Quadriva lent, No Preserve, 6 Mons & Above, IM 01/25/2018 Seasonal Influenza, Quadriva lent, No Preserve, Adjuvanted, 65+ Yrs, IM 01/08/2020 Seasonal Influenza, Quadriva lent, No Preserve, IM [...] encounter Miscellaneous Notes * Telephone Encounter - BRITTANY Henao - 12/06/2022 11:18 AM EDT I called patient to schedule surgery on Monday03/06/23. Patient said he has some trips planned and will call us when he is back to schedule surgery. documented in this encounter Plan of Treatment Upcoming Encounters Date Type Specialty Care Team Description 01/13/2023 Office Visit Dermatology Stephanie Huntley MD [address] [place] [address] 04/20/2023 Office Visit Internal Medicine Vickey Ray MD [address] [facility] [place] [address] Scheduled Procedures Name Priority Associated Diagnoses Date/Ti [...] filedocumented as of this encounter Care Teams Imaging Assistant Relationship Specialty Start Date End Date Vickey Ray MD [address] [place] [address], [place] [address] PCP - General Internal Medicine 07/30/19 documented as of this encounter
--- OUTSIDE RECORDS SUMMARY | 2023-03-09 17:54 | External Medical Summary | Summary of Care ---
Author Name Unknown Organization [facility] Address [address] [place] [address] Phone [phone] Care Team Providers Care Manager Patient Name Role Phone Vickey Ray MD Primary Care Provider + Reason for Visit * Reason Comments NEW PATIENT Right knee OA * Evaluate & Treat - Unlimited Visits (Within 30 days (routine)) - Authorized Specialty Diagnoses / Procedures Referred By Contac t Referred To Contact Orthopaedic Surgery / Orthopedics Diagnoses Primary osteoarthritis of right knee Lionel Lua MD [address] [place] [address] Rigo Suarez DO [address] [place] [address] Referral ID Status Reason Start Date Expiration Date Visits Requested Visits Authorized [id number] Authorized Specialty Services Required 08/31/[phone] Encounter Details Date Type Department Care Team Description 11/17/2022 Office Visit Orthopaedics [facility] [address] [place] [address] Rigo Suarez DO [address] [place] [address] Primary osteoarthritis of right knee*; Chronic pain of right knee Allergies Active Allergy Reactions Severity Noted Date Comments Dust Mite Extract 06/16/2014 sneezing Neomycin-Bacitracin Zn-Polymyx Rash Medium 07/22/2015 Other Allergy (See Comments) 06/16/2014 Seasonal, --sneezing, watery eyes documented as of this encounter (statuses as of 11/17/2022) Medications Medication Sig Dispensed Refills Start Date [...] as of this encounter (statuses as of 11/17/2022) Active Problems Problem Noted Date Mild mitral [...] upper back - 2013, BCC &SCC left christian, back, jawline bilaterally, right neck (distant), others in past HTN, goal below 140/90 02/15/2011 documented as of this encounter (statuses as of 11/17/2022) Resolved Problems Problem Noted Date Resolved Date Mild aortic valve regurgitation 03/04/2021 10/06/2021 Blepharitis of both eyes 09/20/2017 020 Depression with anxiety 01/25/2017 01/26/20 Dyslipidemia, goal LDL below 130 02/15/2011 02/11/2014 Allergic rhinitis 02/15/2011 09/20/2017 Hemorrhoids, external without complications 01/2901/25/2017 documented as of this encounter (statuses as of 11/17/2022) Immunizations Name Administration Dates Next Due COVID-19 [...] as of this encounter Progress Notes * Rigo Suarez, DO - 11/17/2022 11:11 AM EDT ORTHOPAEDIC SURGERY - Clinic Note SUBJECTIVE: Topher Rubin Jr. is a 77 year old male. Chief Complaint Patient presents with NEW PATIENT Right knee OA HPI: 77-year-old male presents today for evaluation of chronic right knee pain. His symptoms have been ongoing for some time but becoming progressively worse. He localizes symptoms to the medial aspect. He also has described start-up pain especially from rising from a seated position. He reports discomfort with stairs as well as squatting. He has limited activities to include walking as well as go lfing. He reports occasional stiffness as well as swelling. He has been treated with oral medications, activity modification and ice. He was previously evaluated and referred for evaluation of joint replacement candidacy. Review of Systems: Constitutional ROS: No fevers, sweats, or chills Cardiovascular ROS: No chest pain Gastrointestinal ROS: No abdominal pain Musculoskeletal/Extremities ROS: Pain Neurologic ROS: No numbness or tingling Review of patient's allergies indicates: Allergen Reactions Neosporin [Neomycin-Bacitracin Zn-Polymyx] Rash Dust Mite Extract sneezing Other Allergy (See Comments) Seasonal, --sneezing, watery eyes Current Outpatient Medications Medication Sig Dispense Refill [...] area on cheek nightly for 2 weeks 40g 1 Hydrocortisone (Perianal) 2.5 % External Cream (Procto-Med HC) Administer into the rectum 2 times a day. 30 g 1 Calcitriol 3 MCG/GM External [...] a day as directed. 60 mL 12 Sertraline HCl 50 MG Oral Tablet (Zoloft) 1 tablet daily 90 Tablet 3 Ondansetron 8 MG Oral Tablet Disintegrating (Zofran) Place on tongue 1 Tablet every 8 hours as needed for Nausea. dissolve on tongue. 14 Tablet 0 Acitretin 10 MG Oral Capsule TAKE 1 CAPSULE BY MOUTH EVERY OTHER DAY WITH FOOD 45 Capsule 1 Acitretin 10 MG Oral Capsule TAKE 1 CAPSULE WITH FOOD, EVERY OTHER DAY 45 Capsule 1 Azelastine HCl 137 MCG/SPRAY Nasal Solution USE 2 SPRAYS IN BOTH NOSTRILS DAILY NEEDED FOR RHINITIS 90 mL 2 Simvastatin 20 MG Oral Tablet (Zocor) TAKE 1 TABLET BY MOUTH AT BEDTIME 90 Tablet 2 Acetaminophen 500 MG Oral Tablet (Tylenol) Take 2 Tablets by mouth every 12 hours as needed forPain, Severe. 100 Tablet 0 Atenolol 25 MG Oral Tablet (Tenormin) TAKE 1 TABLET BY MOUTH DAILY 90 Tablet 3 amLODIPine Besylate 5 MG Oral Tablet (Norvasc) TAKE 1 TABLET BY MOUTH DAILY 90 Tablet 3 No current facility-administered medications for this visit. 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 ANABELLA (generalized anxiety disorder) F41.1 Hx of actinic keratosis Z87.2 Fatty liver K76.0 Diastolic dysfunction I51.89 Moderate aortic regurgitation I35.1 Mild mitral regurgitation I34.0 Past Medical History: Diagnosis Date Allergic rhinitis 02/15/2011 Benign neoplasm of colon 10/18/12 COLONOSCOPY FLEXIBLE PROXIMAL DIAGNOSTIC performed by Scott Barboza DO at ENDOSCOPY [facility], hyperplastic polyps repeat colonoscopy in 5 years Blepharitis of both eyes 09/20/2017 Depression with anxiety 01/25/2017 Diastolic dysfunction 03/04/2021 Dyslipidemia, goal LDL below 130 02/15/2011 Hemorrhoids, external without complications 02/15/2011 HTN, goal below 140/90 02/15/2011 IPMN (intraductal papillary mucinous neoplasm) 06/11/2014 Mild mitral regurgitation 05/06/2022 Past Surgical History: Procedure Laterality Date APPENDECTOMY W/OTHER PROCEDURE COLONOSCOPY, DIAGNOSTIC (RECTUM) 10/18/2012 COLONOSCOPY FLEXIBLE PROXIMAL DIAGNOSTIC performed by Scott Barboza DO at ENDOSCOPY [facility], hyperplastic polyps repeat colonoscopy in 5 years COLONOSCOPY, DIAGNOSTIC (RECTUM) 02/02/2018 adenomatous & serrated adenomatous polyps, diverticulosis, repeat 3 yrs/COLONOSCOPY FLEXIBLE PROXIMAL DIAGNOSTIC performed by Scott Barboza DO at ENDOSCOPY [facility] COLONOSCOPY, DIAGNOSTIC (RECTUM) 06/16/2020 hyperplastic & serrated adenomatous polyp, diverticulosis, repeat 3 yrs / COLONOSCOPY FLEXIBLE PROXIMAL DIAGNOSTIC performed by Scott Barboza DO at ENDOSCOPY [facility] EGD, FLEXIBLE, DIAGNOSTIC 12/26/2011 UPPER GI ENDOSCOPY DIAGNOSTIC performed by Scott Barboza DO at ENDOSCOPY [facility], path shows mild inflammation within stomach normal appearing small intestine EGD, W/ENDOSCOPIC US 10/10/2012 UPPER GI ENDOSCOPY ENDOSCOPIC ULTRASOUND performed by Scott Barboza DO at OR [facility] ENDO RUSTY LASER FIRST VEIN HAND/FINGER SURGERY NEC 03/2013 cyst removal middle finger HEMORRHOIDECTOMY,EXTERNAL, 2 + COLUMNS LENS LENTICULAR BIFOCAL 2009 MOHS, 1ST STAGE; FACE, HANDS, FEET, NERVE 2010 REMOVAL OF TONSILS, UNDER AGE 11 TENOTOMY ACHILLES TENDON, PERC; LOCAL ANESTHESIA 1981 Social History Tobacco Use Smoking status: Never Smokeless tobacco: Never Vaping Use Vaping Use: Never used Substance Use Topics Alcohol use: Yes Alcohol/week: 17.5 standard drinks Types: 14 12 oz of beer, 7 Mixed drink(s) containing 1.5 shots of alcohol per week Comment: 2-3 drinks per day Drug use: No Family history: Noncontributory OBJECTIVE: Diagnostic Testing: X-rays of the right knee in August of 2022 were reviewed and interpreted in the office today demonstrating evidence of severe degenerative change involving the medial patellofemoral compartment. Evidence of fracture. Previous MRI demonstrated evidence of moderate degenerative change most notable within the medial compartment with associated degenerative complex medial meniscal tear. Vital Signs: There were no vitals taken for this visit. Physical Exam: Well developed/nourished; no acute distress; alert, awake, oriented x3; normal affect Gait Assessment is antalgic Examination of the right knee reveals no gross edema, ecchymosis or erythema. No significant joint effusion. Tenderness palpation along the anterior medial joint line. Patellofemoral crepitus noted. He has good range of motion from roughly 0- 120 degrees. Collateral stability intact. He has good quad strength. Sensation intact. Pulses palpable. Examination left knee was benign ASSESSMENT: Primary osteoarthritis of right knee (Primary) Chronic pain of right knee Follow Up: Return for Preoperative H&P and surgical scheduling - right knee replacement. | For:Preoperative H&P and surgical scheduling - right knee replacement PLAN: We would a lengthy discussion today with respect to his imaging studies demonstrating evidence of moderate to early severe osteoarthritis as well as degenerative meniscal pathology. He has failed initial conservative management. We briefly reviewed knee arthroscopy as well as the likelihood of recurrent symptoms due to his pre-existing osteoarthritis. We also reviewed joint replacement in detail today. He is interested in pursuing joint replacement. He would like to consider a time around the late January/early March if possible. Joint replacement information was provided. I will see him back in the future for further discussion and possible scheduling. All questions answered. This chart was completed in part utilizing [employer] Speech Voice Recognition Software. Grammatical errors, random word insertions, pronoun errors, and incomplete sentences are an occasional consequence of this system due to software limitations, ambient noise, and hardware issues. Any formal questions or concerns about the content, text, or information contained within the body of this dictation should be directly addressed to the provider for clarification. Rigo Suarez DO 11/17/2022 11:11 AM documented in this encounter Nursing Notes * GAVIOTA Paris - 11/17/2022 10:08 AM EDT Patient presents today for new patient visit for right knee OA and bakers cyst. documented in this encounter Plan of Treatment Upcoming Encounters Date Type Specialty Care Team Description 01/13/2023 Office Visit Dermatology Stephanie Huntley MD [address] [place] [phone] 04/20/2023 Office Visit Internal Medicine Vickey Ray MD [address] [place] [phone] Scheduled Procedures Name Priority Associated Diagnoses Date/Ti me COLONOSCOPY FLEXIBLE PROXIMAL DIAGNOSTIC Recall History of colon polyps Scheduled Referrals Name Type Priority Associated Diagnoses Orde r Schedule ORTHOPAEDICS REFERRAL OP Referral Within 30 days (routine) Primary osteoarthritis of right knee Ordered: 08/31/2022 Health Maintenance Due Date Last Done Comments [...] as of this encounter Visit Diagnoses Diagnosis Primary osteoarthritis of right knee- Primary Primary localized osteoarthrosis, lower leg Chronic pain of right knee documented in this encounter Care Teams Manager Patient Relationship Specialty Start Date End Date Vickey Ray MD [address] [place] [phone] PCP - General Internal Medicine 07/30/19 documented as of this encounter"
--- OUTSIDE RECORDS SUMMARY | 2023-03-09 17:54 | External Medical Summary | Summary of Care ---
Author Name Unknown Organization [facility] Address [address] [place] [address] Phone [phone] Care Team Providers Care Refuse Collector Name Role Phone Vickey Ray MD Primary Care Provider + Reason for Visit * Reason Comments Medication Refill Encounter Details Date Type Department Care Team Description 12/14/2022 Refill Dermatology [facility] [place] [address] [place] [address] Bulmaro Cardoso MD [address] [facility] [address] Psoriasis* Allergies Active Allergy Reactions Severity Noted Date Comments Dust Mite Extract 06/16/2014 sneezing Neomycin-Bacitracin Zn-Polymyx Rash Medium 07/22/2015 Other Allergy (See Comments) 06/16/2014 Seasonal, --sneezing, watery eyes documented as of this encounter (statuses as of 12/15/2022) Medications Medication Sig Dispensed Refills Start Date [...] DAY WITH FOOD 45 Capsule 1 12/20/2021 Active Azelastine HCl 137 MCG/SPRAY Nasal Solution [...] DAY 45 Capsule 1 12/15/2022 4 Active Acitretin 10 MG Oral CapsuleIndications: Psoriasis TAKE 1 CAPSULE WITH FOOD, EVERY OTHER DAY 45 Capsule 1 12/16/2021 3 Discontinu ed(Refill) documented as of this encounter (statuses as of 12/15/2022) Active Problems Problem Noted Date Mild mitral [...] upper back - 2013, BCC &SCC left holiness, back, jawline bilaterally, right neck (distant), others in past HTN, goal below 140/90 02/15/2011 documented as of this encounter (statuses as of 12/15/2022) Resolved Problems Problem Noted Date Resolved Date Mild aortic valve regurgitation 03/04/2021 10/06/2021 Blepharitis of both eyes 09/20/2017 020 Depression with anxiety 01/25/2017 01/26/20 18 Dyslipidemia, goal LDL below 130 02/15/2011 02/11/2014 Allergic rhinitis 02/15/2011 09/20/2017 Hemorrhoids, external without complications 01/2901/25/2017 documented as of this encounter (statuses as of 12/15/2022) Immunizations Name Administration Dates Next Due COVID-19 [...] encounter Miscellaneous Notes * Telephone Encounter - Bulmaro Cardoso MD - 12/15/2022 10:10 AM EDTSigned Prescriptions: Disp Refills Acitretin 10 MG Oral Capsule 45 Cap*1 Sig: TAKE 1 CAPSULE WITH FOOD, EVERY OTHER DAY Authorizing Provider: BULMARO CARDOSO * Telephone Encounter - Ute Pelaez LPN - 12/15/2022 7:57 AM EDTPending Prescriptions: Disp Refills Acitretin 10 MG Oral Capsule 45 Cap*1 Sig: TAKE 1 CAPSULE WITHFOOD, EVERY OTHER DAY documented in this encounter Plan of Treatment Upcoming Encounters Date Type Specialty Care Team Description 01/13/2023 Office Visit Dermatology Bulmaro Cardoso MD [address] [place] [address], [place] [address] 04/20/2023 Office Visit Internal Medicine Vickey Ray MD [address] [place] [address] Scheduled Procedures Name Priority Associated Diagnoses Date/Ti [...] as of this encounter Visit Diagnoses Diagnosis Psoriasis- Primary Other psoriasis documented in this encounter Care Teams Refuse Collector Relationship Specialty Start Date End Date Vickey Ray MD [address] [place] [address] PCP - General Internal Medicine 07/30/19 documented as of this encounter
--- OUTSIDE RECORDS SUMMARY | 2023-03-09 17:54 | External Medical Summary | Summary of Care ---
Author Name Unknown Organization [facility] Address [address] [place] [address] Phone [phone] Care Team Providers Care Relief Map Modeler Name Role Phone Vickey Vail MD Primary Care Provider + Reason for Visit * Reason Comments eRx-Medication Refill Encounter Details Date Type Department Care Team Description 11/10/2022 Refill General Internal Medicine [facility] 200 [facility] [place] [id number] Vickey Vail MD 200 [facility] [id number] HTN, goal below 140/90 Allergies Active Allergy Reactions Severity Noted Date Comments Dust Mite Extract 06/16/2014 sneezing Neomycin-Bacitracin Zn-Polymyx Rash Medium 07/22/2015 Other Allergy (See Comments) 06/16/2014 Seasonal, --sneezing, watery eyes documented as of this encounter (statuses as of 11/11/2022) Medications Medication Sig Dispensed Refills Start Date End Date Status PATANOL 0.1 % OP SOLN 1 drop each eye as needed for allergy 0 Active OMEGA 3 1000 MG PO CAPS Take by mouth . Takes one daily 0 3 Active clobetasol propionate (TEMOVATE) 0.05 % ointmentIndications :Other psoriasis APPLY TOPICALLY TO AFFECTED AREA(S) TWO TIMES DAILY NEEDED 90 g 2 7 Active latanoprost (XALATAN) 0.005 % ophthalmic solution 0 9 Active Flaxseed, Linseed, (FLAX SEED OIL) 1000 MG Capsule Take 1 Capsule by mouth in the morning. 0 Active Artificial Tear Solution (SOOTHE XP) SOLN Instill into eye daily. 0 Active B-Complex/Vitamin C Oral Tablet (THERAPEUTIC B COMPLEX W/C) Take 1 Tablet by mouth in the morning. 0 0 Active Fluorouracil 5 % External Cream (Efudex)Indications :Actinic keratosis apply to affected area on cheek nightly for 2 weeks 40 g 1 1 Active Hydrocortisone (Perianal) 2.5 % External Cream (Procto-Med HC) Administer into the rectum 2 times a day. 30 g 1 1 Active Calcitriol 3 MCG/GM External Ointment (Vectical)Indicatio ns:Psoriasis apply daily as needed for psoriasis 100 g 3 1 Active Fluticasone Propionate 50 MCG/ACT Nasal Suspension (Flonase) USE TWO SPRAYS IN EACH NOSTRIL ONCE DAILY 48 g 1 2 Active Additional Information Patient not taking.Reported on 09/20/2022 Budesonide 0.5 MG/2ML Inhalation Suspension (Pulmicort) Place 1 ampule in 8 oz of saline and rinse the nose once a day as directed. 60 mL 12 2 Active Sertraline HCl 50 MG Oral Tablet (Zoloft) 1 tablet daily 90 Tablet 3 2 Active Ondansetron 8 MG Oral Tablet Disintegrating (Zofran)Indications :Nausea and vomiting, unspecified vomiting type Place on tongue 1 Tablet every 8 hours as needed for Nausea. dissolve on tongue. 14 Tablet 0 2 Active Acitretin 10 MG Oral CapsuleIndications: Psoriasis TAKE 1 CAPSULE BY MOUTH EVERY OTHER DAY WITH FOOD 45 Capsule 1 2 12/21/19 23 Active Acitretin 10 MG Oral CapsuleIndications: Psoriasis TAKE 1 CAPSULE WITH FOOD, EVERY OTHER DAY 45 Capsule 1 2 12/21/19 23 Active Azelastine HCl 137 MCG/SPRAY Nasal Solution USE 2 SPRAYS IN BOTH NOSTRILS DAILY NEEDED FOR RHINITIS 90 mL 2 3 Active Simvastatin 20 MG Oral Tablet (Zocor)Indications: HTN, goal below 140/90 TAKE 1 TABLET BY MOUTH AT BEDTIME 90 Tablet 2 3 Active Acetaminophen 500 MG Oral Tablet (Tylenol)Indication s:Chronic pain of right knee Take 2 Tablets by mouth every 12 hours as needed for Pain, Severe. 100 Tablet 0 3 Active Atenolol 25 MG Oral Tablet (Tenormin)Indicatio ns:HTN, goal below 140/90 TAKE 1 TABLET BY MOUTH DAILY 90 Tablet 3 3 Active amLODIPine Besylate 5 MG Oral Tablet (Norvasc)Indication s:HTN, goal below 140/90 TAKE 1 TABLET BY MOUTH DAILY 90 Tablet 3 3 Active amLODIPine Besylate 5 MG Oral Tablet (Norvasc)Indication s:HTN, goal below 140/90 TAKE 1 TABLET BY MOUTH DAILY 90 Tablet 1 2 11/12/19 23 Discontinued Atenolol 25 MG Oral Tablet (Tenormin)Indicatio ns:HTN, goal below 140/90 TAKE 1 TABLET BY MOUTH DAILY 90 Tablet 1 2 11/12/19 23 Discontinued documented as of this encounter (statuses as of 11/11/2022) Active Problems Problem Noted Date Mild mitral [...] upper back - 2013, BCC &SCC left hindu, back, jawline bilaterally, right neck (distant), others in past HTN, goal below 140/90 02/15/2011 documented as of this encounter (statuses as of 11/11/2022) Resolved Problems Problem Noted Date Resolved Date Mild aortic valve regurgitation 03/04/2021 10/06/2021 Blepharitis of both eyes 09/20/2017 020 Depression with anxiety 01/25/2017 01/26/20 18 Dyslipidemia, goal LDL below 130 02/15/2011 02/11/2014 Allergic rhinitis 02/15/2011 09/20/2017 Hemorrhoids, external without complications 01/2901/25/2017 documented as of this encounter (statuses as of 11/11/2022) Immunizations Name Administration Dates Next Due COVID-19 [...] encounter Miscellaneous Notes * Telephone Encounter - Elaine Ivy RPh - 11/11/2022 3:55 PM EDT Signed Prescriptions: Disp Refills Atenolol 25 MG Oral Tablet (Tenormin) 90 Tab*3 Sig: TAKE 1 TABLET BY MOUTH DAILYAuthorizing Provider: VICKEY VAIL User: ELAINE IVY amLODIPine Besylate 5 MG Oral Tablet (Norv*90 Tab*3 Sig: TAKE 1 TABLET BY MOUTH DAILYAuthorizing Provider: VICKEY VAIL User: ELAINE IVY documented in this encounter Plan of Treatment Upcoming Encounters Date Type Specialty Care Team Description 11/17/2022 Office Visit Orthopedics Rigo Suarez, DO [address] [place] [address] 01/13/2023 Office Visit Dermatology Stephanie Huntley MD 200 [place] [address] 04/20/2023 Office Visit Internal Medicine Vickey Vail MD [address] [place] [address] Scheduled Procedures Name Priority Associated Diagnoses Date/Ti [...] 0712/2017, 01/29/2010 Hepatitis C Screening Completed 07/09/2021 GARDASIL-HPV [...] as of this encounter Visit Diagnoses Diagnosis HTN, goal below 140/90 Unspecified essential hypertension documented in this encounter Care Teams Relief Map Modeler Relationship Specialty Start Date End Date Vickey Vail MD 200 [place] [address] PCP - General Internal Medicine 07/30/19 documented as of this encounter
--- OUTSIDE RECORDS SUMMARY | 2023-03-09 17:54 | External Medical Summary | Continuity of Care Document ---
Author Name Unknown Organization [facility] [address] [place], [place] [address]A Address [address] [place] [id number] Encounter PS FINNBR [id number] Date(s): 12/02/22 - 12/02/22 [facility] [address] [facility] [address] [facility] Sports Medicine [address] [place] [address], [address] [address] Encounter Diagnosis Arthritis of right knee(Discharge Diagnosis) - 12/02/22 Discharge Disposition: Home or Self Care Attending Physician: MD Orantes Paul K Allergies, Adverse Reactions, Alerts Substance Reaction Severity Status Bacitracin Zinc/Neomycin SO4/Polymyxin B Rash Moderate Active Assessment and Plan Extracted from: Title:Mumtaz Orantes Author:Royal Martinez ate:12/02/22 IMPRESSION: 77 year old male with RIGHT Knee OA and right medial meniscus tear. PLAN: The patient is a candidate for a RIGHT TKA due to his right medial meniscus tear and right knee OA. -Discussed surgical intervention versus conservative measures: R TKA versus a cortisone injection. -I discussed the patient's treatment options of conservative management versus surgical intervention and they will elect to proceed with surgery. Surgical plan to include RIGHT TKA. Rehabilitation plan discussed. Reviewed risks and benefits of surgery, alternatives, and expected outcomes. All questions were answered. Discussed with the patient the use of antibiotics before dental work following the surgery. - They will follow-up to have a preoperative history and physical examination completed. - The patient does not have latex allergies, and does not have a history of blood clots. The patient does not have a history of MRSA, and does not have a pacemaker. The patient understood all my instructions and explanation; all their questions were satisfactorily addressed. Medications acitretin 10 mg oral capsule Start: 12/02/22 8:16:00 EDT, 1 cap, PO, Daily Start Date: 12/02/22 Status: Ordered amLODIPine 5 mg oral tablet Start: 12/02/22 8:15:00 EDT, 1 tab, PO, Daily Start Date: 12/02/22 Status: Ordered atenolol 25 mg oral tablet Start: 12/02/22 8:16:00 EDT, 1 tab, PO, Daily Start Date: 12/02/22 Status: Ordered azelastine 137 mcg/inh (0.1%) nasal spray Start: 12/02/22 8:16:00 EDT Start Date: 12/02/22 Status: Ordered budesonide Start: 12/02/22 8:17:00 EDT Start Date: 12/02/22 Status: Ordered calcitriol Start: 12/02/22 8:17:00 EDT Start Date: 12/02/22 Status: Ordered clobetasol 0.05% topical ointment Start: 12/02/22 8:17:00 EDT, 1 appl, topical, Daily Start Date: 12/02/22 Status: Ordered Flax Seed Oil oral capsule Start: 12/02/22 8:17:00 EDT Start Date: 12/02/22 Status: Ordered fluticasone 50 mcg/inh nasal spray Start: 12/02/22 8:18:00 EDT Start Date: 12/02/22 Status: Ordered hydrocortisone Start: 12/02/22 8:18:00 EDT Start Date: 12/02/22 Status: Ordered omega-3 polyunsaturated fatty acids 200 mg oral capsule Start: 12/02/22 8:18:00 EDT Start Date: 12/02/22 Status: Ordered ondansetron Start: 12/02/22 8:18:00 EDT Start Date: 12/02/22 Status: Ordered sertraline 50 mg oral tablet TAKE 1 TABLET BY MOUTH EVERY DAY Start Date: 12/02/22 Status: Ordered simvastatin 20 mg oral tablet Start: 12/02/22 8:16:00 EDT, 1 tab, PO, qhs Start Date: 12/02/22 Status: Ordered Vitamin B Complex Start: 12/02/22 8:18:00 EDT Start Date: 12/02/22 Status: Ordered Mental Status 12/02/22 Barriers to Learning one year None evide nt Mandatory Health Literacy Documentation Yes Health Literacy Communication Barriers N ever Primary Language Latvian Problem List Condition Confirmation Course Effective Dates Status Health St atus Informant History of cancer Confirmed Active HTN (hypertension) Confirmed Active Right knee pain Confirmed Active Diagnosis Diagnosis Type Effective Dates Health Status Cl inical Service Informant Arthritis of right knee Discharge Diagnosis 12/02/22 Procedures Procedure Date Related Diagnosis Body Site Status General surgery 1 Complet ed History of orthopedic surgery 2 Completed 1facial surgery 2acl 1981 Vital Signs Most recent to oldest [Reference Range]: 1 Height 170.0 cm (12/02/22 8:13 AM) Patient Weight 88.0 kg (12/02/22 8:13 AM) Body Mass Index 30.45 kg/m2 (12/02/22 8:13 AM) Social History Social History Type Response Smoking Status Never smoked cigaret katia Sex Male Primary care Note * Royal Martinez: PERFORM, MODIFY, MODIFY, MODIFY, MODIFY Event Display: Ortho Outpt Note Authored Date: [id number] Chief Complaint Right knee OA History of Present Illness Lefty Galarza presents today forright knee OA. The patient hasa peralta's cyst. The patient has had two injections in the last three years,one of which was a series of three Euflexxa injections. The patient has had a cortisone injection about a year ago. The patient has used a brace in the past, but it did not provide any relief. The patient says the most recent onset was about one year ago while playing golf, and was told it was a medial meniscus injury. The patient reports stiffness when waking up. The patient does not use any medication, but uses turmeric which he states has a positive effect. There is often swelling. The patient uses ice and elevates his leg, which help. Traversing stairs exacerbates pain, especially twisting his knee- but generally describes "inward movement" as being the biggest source of his pain. The patient has been undergoing physical therapy for about a month, which has been alleviating some of his pain. The patient takes flaxseed oil as a blood thinner. The patient had Achilles tendon surgery in 1981 which hadmany complexities such as allergies to the sutures. Review of Systems A 14 point review of systems is available in the EMR. Physical Exam Focusing on the patient's RIGHT lower extremity: [Sensation intact to light touch L3 to S1 dermatomes.] Palpable dorsalis pedis pulses ROM: 1 to 115(RIGHT) -2 to 130 (LEFT, unaffected) Popliteal angle: 30 1+effusion + Yaima's -Joint line tenderness + tenderness on medial and lateral facet of patella -NO tenderness of inferior pole of patella -NOtenderness or MCL origin or insertion Ligament exam: -Posterior drawer Stable to Varus and Valgus stress at 0 and 30. (mild discomfort with valgus stress test at 30) Diagnostic Results 1view (Long leg alignment film)of SED Web kneeobtained today and personally interpreted byme show joint space narrowing and chondral calcinosis in the lateral compartment (calcium in lateral meniscus) I reviewed an X-Ray from August 31, 2022of the right knee which shows mild to moderate medial joint OA, and some bone spurring, as well as bone marrow edema. I reviewed an MRI from June 30, 2022 which shows a right medial meniscus tear and OA. Assessment/Plan IMPRESSION: 77 year old male with RIGHT Knee OA and right medial meniscus tear. PLAN: The patient is a candidate for a RIGHT TKA due to his right medial meniscus tear and right knee OA. -Discussed surgical intervention versus conservative measures: R TKA versus a cortisone injection. -I discussed the patient's treatment options of conservative management versus surgical intervention and they will elect to proceed with surgery. Surgical plan to include RIGHT TKA. Rehabilitation plan discussed. Reviewed risks and benefits of surgery, alternatives, and expected outcomes. All questions were answered. Discussed with the patient the use of antibiotics before dental work following the surgery. - They will follow-up to have a preoperative history and physical examination completed. - The patient does not have latex allergies, and does not have a history of blood clots. The patient does not have a history of MRSA, and does not have a pacemaker. The patient understood all my instructions and explanation; all their questions were satisfactorilyaddressed. Attestation I, Royal Martinez, have scribed for, and in the presence of, Mumtaz Orantes, on this date,12/02/2022 08:34:47. Recommendations Health Maintenance Pending(in the next year) OverDue Adult Influenza Vaccine due10/29/22and every 1year Due Medicare Annual Wellness Visit due12/02/22and every 1year Satisfied(in the past 1 year) There are no satisfied recommendations within the defined date range Electronic Signature on File Electronically Reviewed/Signed by: Royal Martinez Author Signature Dt/Tm:12/02/2022 08:48 AM Electronically Reviewed/Signed by: MD Stevenson Wellington Signature Dt/Tm: 12/02/2022 01:11PM Division of Sports Medicine BF
--- OUTSIDE RECORDS SUMMARY | 2023-03-09 17:54 | External Medical Summary | Summary of Care ---
Author Name Unknown Organization [facility] Address [address] [place] [address] Phone [phone] Care Team Providers Care Major Gifts Officer Name Role Phone Vickey Ray MD Primary Care Provider + Encounter Details Date Type Department Care Team Description 11/08/2022 Patient Reported Data Patient Survey Ortho OBERD Allergies Active Allergy Reactions Severity Noted Date Comments Dust Mite Extract 06/16/2014 sneezing Neomycin-Bacitracin Zn-Polymyx Rash Medium 07/22/2015 Other Allergy (See Comments) 06/16/2014 Seasonal, --sneezing, watery eyes documented as of this encounter (statuses as of 11/08/2022) Medications Medication Sig Dispensed Refills Start Date [...] on tongue. 14 Tablet 0 02/19/2022 Active amLODIPine Besylate 5 MG Oral Tablet (Norvasc)Indications :HTN, goal below 140/90 TAKE 1 TABLET BY MOUTH DAILY 90 Tablet 1 04/20/2022 Active Atenolol 25 MG Oral Tablet (Tenormin)Indication s:HTN, goal below 140/90 TAKE 1 TABLET BY MOUTH DAILY 90 Tablet 1 04/20/2022 Active Acitretin 10 MG Oral CapsuleIndications:P soriasis [...] Pain, Severe. 100 Tablet 0 09/20/2022 Active documented as of this encounter (statuses as of 11/08/2022) Active Problems Problem Noted Date Mild mitral [...] upper back - 2013, BCC &SCC left scientologist, back, jawline bilaterally, right neck (distant), others in past HTN, goal below 140/90 02/15/2011 documented as of this encounter (statuses as of 11/08/2022) Resolved Problems Problem Noted Date Resolved Date Mild aortic valve regurgitation 03/04/2021 10/06/2021 Blepharitis of both eyes 09/20/2017 020 Depression with anxiety 01/25/2017 01/26/20 18 Dyslipidemia, goal LDL below 130 02/15/2011 02/11/2014 Allergic rhinitis 02/15/2011 09/20/2017 Hemorrhoids, external without complications 01/2901/25/2017 documented as of this encounter (statuses as of 11/08/2022) Immunizations Name Administration Dates Next Due COVID-19 [...] on file documented as of this encounter Plan of Treatment Upcoming Encounters Date Type Specialty Care Team Description 11/17/2022 Office Visit Orthopedics Rigo Suarez, DO [address] [place] [address] 01/13/2023 Office Visit Dermatology Stephanie Huntley MD [address] [facility] [place] [address] 04/20/2023 Office Visit Internal Medicine Vickey Ray MD [address] [facility] [place] [address] Scheduled Procedures Name Priority Associated Diagnoses Date/Ti [...] 08/24/2015, 08/12/2014, 01/29/2009 Zoster Vaccines Completed 04/14/2018, 07/12/2017, 01/29/2010 Hepatitis C Screening Completed 07/09/2021 GARDASIL-HPV [...] filedocumented as of this encounter Care Teams Major Gifts Officer Relationship Specialty Start Date End Date Vickey Ray MD [address] [facility], [place] [id number] PCP - General Internal Medicine 07/30/19 documented as of this encounter
--- OUTSIDE RECORDS SUMMARY | 2023-03-09 17:54 | External Medical Summary | Summary of Care ---
Author Name Unknown Organization [facility] Address [address] [place] [address] Phone [phone] Care Team Providers Care Technician Plant And Maintenance Name Role Phone Vickey Ray MD Primary Care Provider + Reason for Visit * Reason Onset Date Comments Films 11/17/2022 Encounter Details Date Type Department Care Team Description 11/17/2022 Telephone Radiology Film File [address] [place] [address] Lionel Lua MD [address] [place] [id number] Films Allergies Active Allergy Reactions Severity Noted Date Comments Dust Mite Extract 06/16/2014 sneezing Neomycin-Bacitracin Zn-Polymyx Rash Medium 07/22/2015 Other Allergy (See Comments) 06/16/2014 Seasonal, --sneezing, watery eyes documented as of this encounter (statuses as of 12/01/2022) Medications Medication Sig Dispensed Refills Start Date [...] as of this encounter (statuses as of 12/01/2022) Active Problems Problem Noted Date Mild mitral [...] upper back - 2013, BCC &SCC left yazidi, back, jawline bilaterally, right neck (distant), others in past HTN, goal below 140/90 02/15/2011 documented as of this encounter (statuses as of 12/01/2022) Resolved Problems Problem Noted Date Resolved Date Mild aortic valve regurgitation 03/04/2021 10/06/2021 Blepharitis of both eyes 09/20/2017 04 020 Depression with anxiety 01/25/2017 01/26/20 18 Dyslipidemia, goal LDL below 130 02/15/2011 02/11/2014 Allergic rhinitis 02/15/2011 09/20/2017 Hemorrhoids, external without complications 01/2901/25/2017 documented as of this encounter (statuses as of 12/01/2022) Immunizations Name Administration Dates Next Due COVID-19 [...] Miscellaneous Notes * Telephone Encounter - BRITTANY Loyd - 12/01/2022 11:38 AM EDT Glo from [facility] requesting 11/10/21 and 08/31/22 Knee Xray and 06/30/22 Knee MR imaging and report(s). Higgins Authorization to Release on file. Images pushed to [facility] PACS as this is the office's preferred method of transmission/retrieval. Associated report(s) faxed to: [phone]. Successful fax confirmation received. * Telephone Encounter - BRITTANY Rosado - 11/17/2022 11:19 AM EDT Patient requested for 06-30-22 to present Image(s) and report(s) be prepared and available for pickup at [facility] Disc created and reports printed - patient in office at [facility] Patient/artist's representative signed release of information and received disc in office. documented in this encounter Plan of Treatment Upcoming Encounters Date Type Specialty Care Team Description 01/13/2023 Office Visit Dermatology Stephanie Huntley MD 200 [facility] [place] [address] 04/20/2023 Office Visit Internal Medicine Vickey Ray MD [address] [place], [place] [address] Scheduled Procedures Name Priority Associated Diagnoses Date/Ti [...] filedocumented as of this encounter Care Teams Technician Plant And Maintenance Relationship Specialty Start Date End Date Vickey Ray MD [address] [place] [address], [place] [address] PCP - General Internal Medicine 07/30/19 documented as of this encounter
--- OUTSIDE RECORDS SUMMARY | 2023-03-09 17:54 | External Medical Summary | Summary of Care ---
Author Name Unknown Organization [facility] Address [address] [place] [address] Phone [phone] Care Team Providers Care Business Support Assistant Name Role Phone Vickey Ray MD Primary Care Provider + Reason for Visit * Reason Onset Date Comments Films 11/17/2022 Encounter Details Date Type Department Care Team Description 11/17/2022 Telephone Radiology Film File [address] [place] [address] Lionel Lua MD [address] [place] [address] Films Allergies Active Allergy Reactions [...] upper back - 2013, BCC &SCC left lutheran, back, jawline bilaterally, right neck (distant), others [...] Miscellaneous Notes * Telephone Encounter - BRITTANY Rsoado - 11/17/2022 11:19 AM EDT Patient requested for 06-30-22 to present Image(s) and report(s) be prepared and available for pickup at [facility] created and reports printed - patient in office at [facility] Patient/pharmaceutical service representative signed release of information and received disc in office. documented in this encounter Plan of Treatment Upcoming Encounters Date Type Specialty Care Team Description 01/13/2023 Office Visit Dermatology Stephanie Huntley MD [address] [place] [address], [place] [address] 04/20/2023 Office Visit Internal Medicine Vickey Ray MD [address] [place] [address] Scheduled Procedures Name Priority Associated Diagnoses Date/Ti [...] filedocumented as of this encounter Care Teams Business Support Assistant Relationship Specialty Start Date End Date Vickey Ray MD [address] [place] [address], [place] [address] PCP - General Internal Medicine 07/30/19 documented as of this encounter
--- OUTSIDE RECORDS SUMMARY | 2023-03-09 17:55 | External Medical Summary | Summary of Care ---
Author Name Unknown Organization [facility] Address [address] [place] [address] Phone [phone] Care Team Providers Care Vocational Training Instructor Name Role Phone Vickey Ray MD Primary Care Provider + Encounter Details Date Type Department Care Team Description 10/16/2022 Patient Reported Data Patient Survey Ortho OBERD Allergies Active Allergy Reactions Severity Noted Date Comments Dust Mite Extract 06/16/2014 sneezing Neomycin-Bacitracin Zn-Polymyx Rash Medium 07/22/2015 Other Allergy (See Comments) 06/16/2014 Seasonal, --sneezing, watery eyes documented as of this encounter (statuses as of 10/16/2022) Medications Medication Sig Dispensed Refills Start Date [...] as of this encounter (statuses as of 10/16/2022) Active Problems Problem Noted Date Mild mitral [...] upper back - 2013, BCC &SCC left anabaptism, back, jawline bilaterally, right neck (distant), others in past HTN, goal below 140/90 02/15/2011 documented as of this encounter (statuses as of 10/16/2022) Resolved Problems Problem Noted Date Resolved Date Mild aortic valve regurgitation 03/04/2021 10/06/2021 Blepharitis of both eyes 09/20/2017 020 Depression with anxiety 01/25/2017 01/26/20 18 Dyslipidemia, goal LDL below 130 02/15/2011 02/11/2014 Allergic rhinitis 02/15/2011 09/20/2017 Hemorrhoids, external without complications 01/2901/25/2017 documented as of this encounter (statuses as of 10/16/2022) Immunizations Name Administration Dates Next Due COVID-19 [...] DO [address] [place] [address] 01/13/2023 Office Visit Dermatology Stephanie Huntley MD [address] [facility] [place] [address] 04/20/2023 Office Visit Internal Medicine Vickey Ray MD [address] [facility] [place] [address] Scheduled Procedures Name Priority Associated Diagnoses Date/Ti me COLONOSCOPY FLEXIBLE PROXIMAL DIAGNOSTIC Recall History of colon polyps Health Maintenance Due Date Last Done Comments COVID-19 Vaccine (4 - Moderna series) 04/19/2021 02/22/2021, 06/26/2020, 05/29/2020 GFR 05/31/2023 05/31/2022, 03/01, 03/05/2021, Additional history [...] 12/2017, 01/29/2010 Hepatitis C Screening Completed 07/09/2021 Influenza Vaccine (FLU shot) Completed 03/2022, 01/26/2021, 01/08/2020, Additional history exists GARDASIL-HPV IMMUNIZATION SERIES Aged [...] filedocumented as of this encounter Care Teams Vocational Training Instructor Relationship Specialty Start Date End Date Vickey Ray MD [address] [place] [address] PCP - General Internal Medicine 07/30/19 documented as of this encounter
--- OUTSIDE RECORDS SUMMARY | 2023-03-09 17:55 | External Medical Summary | Summary of Care ---
Author Name Unknown Organization [facility] Address [address] [place] [address] Phone [phone] Care Team Providers Care Analytical Data Miner Name Role Phone Vickey Ray MD Primary Care Provider + Reason for Referral * Evaluate & Treat - Unlimited Visits (Within 30 days (routine)) - Authorized Specialty Diagnoses / Procedures Referred By Contmarie t Referred To Contact Gastroenterology Diagnoses Fatty liver IPMN (intraductal papillary mucinous neoplasm) Vickey Ray MD [address] [facility] [place] [address] Referral ID Status Reason Start Date Expiration Date Visits Requested Visits Authorized [id number] Authorized Specialty Services Required 09/20/[phone] Question Answer Referral Priority Within 30 days (routine) For what condition is the patient being referred? Liver Comments Follow up fatty liver, ipmn Reason for Visit * Reason Comments Follow Up 6 month follow up. Ann-Marie gould presents with concerns for his Right knee pain, on going treatment with Dr Hargrove. Patient would like to discuss his BP readings as well, he brought his home cuff for comparison. Encounter Details Date Type Department Care Team Description 09/20/2022 Office Visit General Internal Medicine [place] Cathie Self [address] [place] [address] Vickey Ray MD [address] [place] [address] HTN, goal below 140/90*; Chronic pain of right knee; Fatty liver; Major depressive disorder with single episode, in partial remission (HCC); Obesity, Class I, BMI 30.0-34.9 (see actual BMI); IPMN (intraductal papillary mucinous neoplasm); Moderate aortic regurgitation; Seasonal allergic rhinitis due to pollen; Mixed hyperlipidemia; ANABELLA (generalized anxiety disorder) Allergies Active Allergy Reactions Severity Noted Date Comments Dust Mite Extract 06/16/2014 sneezing Neomycin-Bacitracin Zn-Polymyx Rash Medium 07/22/2015 Other Allergy (See Comments) 06/16/2014 Seasonal, --sneezing, watery eyes documented as of this encounter (statuses as of 09/20/2022) Medications Medication Sig Dispensed Refills Start Date [...] as of this encounter (statuses as of 09/20/2022) Active Problems Problem Noted Date Mild mitral [...] upper back - 2013, BCC &SCC left alevism, back, jawline bilaterally, right neck (distant), others in past HTN, goal below 140/90 02/15/2011 documented as of this encounter (statuses as of 09/20/2022) Resolved Problems Problem Noted Date Resolved Date Mild aortic valve regurgitation 03/04/2021 10/06/2021 Blepharitis of both eyes 09/20/2017 020 Depression with anxiety 01/25/2017 01/26/20 18 Dyslipidemia, goal LDL below 130 02/15/2011 02/11/2014 Allergic rhinitis 02/15/2011 09/20/2017 Hemorrhoids, external without complications 01/2901/25/2017 documented as of this encounter (statuses as of 09/20/2022) Immunizations Name Administration Dates Next Due COVID-19 [...] on file documented as of this encounter Last Filed Vital Signs Vital Sign Reading Time Taken Comments Blood Pressure 123/76 09/20/2022 8:43 AM EDT patients automatic home cuff Pulse 62 09/20/2022 8:43 AM EDT Temperature 36.3 C (97.3 F) 09/20/2022 8 :41 AM EDT Respiratory Rate - - Oxygen Saturation 96% 09/20/2022 8:4 1 AM EDT Inhaled Oxygen Concentration - - Weight 88.7 kg (195 lb 9.6 oz) 09/20/2022 8:41 AM EDT Height 167.6 cm (5' 6") 09/20/2022 8:41 AM EDT Body Mass Index 31.57 09/20/2022 8:41 AM EDT documented in this encounter Patient Instructions * Patient Instructions* Vickey Ray MD - 09/20/2022 8:47 AM EDT BMI (Body Mass Index) is the number obtained by dividing a person's weight in kilograms by his or her height in meters squared. BMI is used in determining obesity. BMI is not used to determine a person's actual percentage of body fat, but it is a good tool to attendant coin operated laundry weight in terms of what is healthy and unhealthy. It is used to identify adults at increased risk for developing weight related medical problems. Estimated body mass index is 31.57 kg/m as calculated from the following: Height as of this encounter: 1.676 m (5' 6"). Weight as of this encounter: 88.7 kg (195 lb 9.6 oz). Obesity - BMI 30 kg/m2 to 34.9 kg/mg - Obese individuals are at risk for developing: * Heart disease * Stroke * Diabetes * High Blood Pressure * High Cholesterol * GERD (acid reflux) * Sleep Apnea * Osteoarthritis * Fatty Liver Disease * Certain Types of Cancers * Gout * Gall Bladder Disease - Weight loss has been shown to decrease weight related medical problems. - Each additional 5 unit increase in BMI at/above 25 kg/m2 is linked to a 40% increase in from heart and coronary artery disease. - The lifespan of those with a BMI of 30-35 kg/m2 is reduced by two to four years compared to thosewith a normal BMI. - A 12-week weight management text message program is also available. Go to [employer]JRapid and seethe message under '[employer] News' for more information and enrollment. Patient is Instructed to: Diet: * Limit total fat intake to no more than 40 grams per day (low fat diet). * Increase fruits and vegetables to 5 servings per day, combined. * Limited starches (breads, pasta, rice, potatoes, corn, cereals) to 4 servings per day. Avoid Calorie Containing Drinks: * No fruit juices, regular sodas or sweetened drinks. * Water is preferred - 64 ounces per day unless advised of a fluid restriction. * Diet sodas and drinks permitted. Keep Honest, Accurate Food logs: * www.[employer].InferX * www.[employer].InferX * If you bite it - write it! Weigh Yourself Weekly: * Morning is best. * Try to do this outside your home. * Have a friend/spouse remind you to weigh yourself, accountability to others helps. Perform 30 minutes of physical activity daily: * Can do all at once or 5 minutes 6 times per day * 8, 000-10,000 steps per day using a pedometer * Make it fun! documented in this encounter Progress Notes * Vickey Ray MD - 09/20/2022 8:47 AM EDT Chief Complaint Patient presents with Follow Up 6 month follow up. Patient presents with concerns for his Right knee pain, on going treatment with Dr Hargrove. Patient would like to discuss his BP readings as well, he brought his home cuff for comparison. SUBJECTIVE: Topher Rubin . is a 77 year old male with PMH as below who presents for Follow up htn, fatty liver, depression, anxiety, ipmn. No cp, pressure, sob. bp 140's at home rarely, most controlled. No N/V/D. Mood is ok, but frustrated with knee, first time in life right knee pain limits activities. Can't walk long w/o pain, no golf. No oral med for this,has seen ortho, felt to be djd, sees again in October, just started pt, helping Alcohol intake is down, not drinking excessively Patient Active Problem List Diagnosis Code HTN, [...] aortic regurgitation I35.1 Mild mitral regurgitation I34.0 Current Outpatient Medications Medication Sig Dispense Refill [...] as needed for psoriasis 100 g 3 Budesonide 0.5 MG/2ML Inhalation Suspension (Pulmicort) Place 1 ampule in 8 oz of saline and rinse the nose once a day as directed. 60 mL 12 Sertraline HCl 50 MG Oral Tablet (Zoloft) 1 tablet daily 90 Tablet 3 amLODIPine Besylate 5 MG Oral Tablet (Norvasc) TAKE 1 TABLET BY MOUTH DAILY 90 Tablet 1 Atenolol 25 MG Oral Tablet (Tenormin) TAKE 1 TABLET BY MOUTH DAILY 90 Tablet 1 Acitretin 10 MG Oral Capsule TAKE [...] as needed forPain, Severe. 100 Tablet 0 Fluticasone Propionate 50 MCG/ACT Nasal Suspension (Flonase) USE TWO SPRAYS IN EACH NOSTRIL ONCE DAILY (Patient not taking: Reported on 09/20/2022) 48 g 1 Ondansetron 8 MG Oral Tablet Disintegrating (Zofran) Place on tongue 1 Tablet every 8 hours as needed for Nausea. dissolve on tongue. 14 Tablet 0 No current facility-administered medications for this visit. Review of patient's allergies indicates: Allergen Reactions Neosporin [Neomycin-Bacitracin Zn-Polymyx] Rash Dust Mite Extract sneezing Other Allergy (See Comments) Seasonal, --sneezing, watery eyes Health Maintenance Due Topic Date Due COVID-19 Vaccine (4 - Booster for Moderna series) 04/19/2021 Depression Screening, Annual for Pts 12 and Over 04/15/2022 ROS: CONSTITUTIONAL: No weakness and No fevers, sweats, or chills EYE: No recent significant change in vision, No eye pain, redness, discharge and No diplopia EARS: No ear pain, No drainage, No tinnitus or vertigo and No recent change in hearing NOSE: No significant epistaxis and chronic allergic rhinitis stable PULMONARY: No cough, sputum, or hemoptysis, No wheezing, No rales, No shortness of breath and No recent change in breathing CARDIOVASCULAR: No chest pain, No shortness of breath, No dyspnea on exertion, No orthopnea, No paroxysmal nocturnal dyspnea, No edema, No palpitations and No syncope ALL OTHER SYSTEMS NEGATIVE I reviewed social, PMH, PSH, and family history and updated where needed. 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: social studies Tobacco Use Smoking status: Never Smokeless tobacco: Never Vaping Use Vaping Use: Never used Substance and Sexual Activity Alcohol use: Yes Alcohol/week: 17.5 standard drinks Types: 14 12 oz of beer, 7 Mixed drink(s) containing 1.5 shots of alcohol per week Comment: 2-3 drinks per day Drug use: No Sexual activity: Yes Partners: Female Other Topics Concern Not on file Social History Narrative Not on file Social Determinants of Health Financial Resource Strain: Not on file Food Insecurity: No Food Insecurity Worried About Running Out of Food in the Last Year: Never true Ran Out of Food in the Last Year: Never true Transportation Needs: Not on file Physical Activity: Not on file Stress: Not on file Social Connections: Not on file Intimate Partner Violence: Not on file Housing Stability: Not on file Past Medical History: Diagnosis Date Allergic rhinitis 02/15/2011 Benign neoplasm of colon 10/18/12 COLONOSCOPY FLEXIBLE PROXIMAL DIAGNOSTIC performed by Scott Barboza DO at ENDOSCOPY [facility], hyperplastic polyps repeat colonoscopy in 5 years Blepharitis of both eyes 09/20/2017 Depression with anxiety 01/25/2017 Diastolic dysfunction 03/04/2021 Dyslipidemia, goal LDL below 130 02/15/2011 Hemorrhoids, external without complications 02/15/2011 HTN, goal below 140/90 02/15/2011 IPMN (intraductal papillary mucinous neoplasm) 06/11/2014 Mild mitral regurgitation 05/06/2022 Past Surgical History: Procedure Laterality Date APPENDECTOMY W/OTHER PROCEDURE 1959' COLONOSCOPY, DIAGNOSTIC (RECTUM) 10/18/2012 COLONOSCOPY FLEXIBLE PROXIMAL DIAGNOSTIC performed by Scott Barboza DO at ENDOSCOPY [facility], hyperplastic polyps repeat colonoscopy in 5 years COLONOSCOPY, DIAGNOSTIC (RECTUM) 02/02/2018 adenomatous & serrated adenomatous polyps, diverticulosis, repeat 3 yrs/COLONOSCOPY FLEXIBLE PROXIMAL DIAGNOSTIC performed by Scott Barboza DO at ENDOSCOPY [facility] COLONOSCOPY, DIAGNOSTIC (RECTUM) 06/16/2020 hyperplastic & serrated adenomatous polyp, diverticulosis, repeat 3 yrs / COLONOSCOPY FLEXIBLE PROXIMAL DIAGNOSTIC performed by Scott Barboza DO at ENDOSCOPY [facility] EGD, FLEXIBLE, DIAGNOSTIC 12/26/2011 UPPER GI ENDOSCOPY DIAGNOSTIC performed by Scott Barboza DO at ENDOSCOPY [facility], path shows mild inflammation within stomach normal appearing small intestine EGD, W/ENDOSCOPIC US 10/10/2012 UPPER GI ENDOSCOPY ENDOSCOPIC ULTRASOUND performed by Scott Barboza DO at OR [facility] ENDO RUSTY LASER FIRST VEIN HAND/FINGER SURGERY NEC 03/2013 cyst removal middle finger HEMORRHOIDECTOMY,EXTERNAL, 2 + COLUMNS LENS LENTICULAR BIFOCAL 2009 MOHS, 1ST STAGE; FACE, HANDS, FEET, NERVE 2010 REMOVAL OF TONSILS, UNDER AGE 11 TENOTOMY ACHILLES TENDON, PERC; LOCAL ANESTHESIA 1981 Family History Problem Relation Age of Onset Heart attack Father 53 Hypertension Mother Allergies Uncle (Paternal) No Known Problems Son OBJECTIVE: PHYSICAL EXAM: BP 123/76 Comment: patients automatic home cuff | Pulse 62 | Temp 36.3 C (97.3 F) | Ht 1.676 m (5' 6") | Wt 88.7 kg (195 lb 9.6 oz) | SpO2 96% | BMI 31.57 kg/m | BSA 2.03 m General: alert, healthy and no distress Head: Normocephalic, No masses, lesions, tenderness or abnormalities Eye Exam: conjunctiva are pink and non-injected, sclera clear Ears: External ears normal, Canals clear, TM's Normal Nose: no mucosal erythema, no mucosal edema, no purulent discharge Heart: regular rate & rhythm, no murmur, no gallops, PMI non-displaced, S-1 normal and S-2 normal Lungs: normal respiratory rate and rhythm, lungs clear to auscultation Extremities: no clubbing, no cyanosis, full rom right knee, no pain to palpation Neuro Exam: alert with fluent speech, gait normal Psych: normal affect, no flight of ideas or tangential thought, good eye contact, no pressured speech I reviewed last tsh, gfr, cbc, lft lipid sports med: When I initially saw him for an acute knee injury in October of 2021, I suspected the majority of his pain from MCL sprain also has underlying DJD and potential meniscal tear. No Locking however. He had limited benefit from an intra-articular steroid injection performed on 11/10/2021. MR findings as noted above have been discussed. Euflexxa series completed 07/28/2022 is now helping and he's doing relatively well He has both medial tinsmith apprentice brace and a hinge brace. In general tinsmith apprentice brace helps more except when golfing. Hinge feels better golfing As noted above was seen by my colleague Dr. Lionel Lua MD (orthopedic surgery, sports medicine)who did not think he would benefit from arthroscopy. Suspected majority of symptoms are related to DJD not the degenerative meniscal tear. If conservative treatments are not able to control his symptoms would recommend consultation with an arthroplasty specialist ASSESSMENT: I10 HTN, goal below 140/90 (primary encounter diagnosis) M25.561,G89.29 Chronic pain of right knee K76.0 Fatty liver F32.4 Major depressive disorder with single episode, in partial remission (HCC) E66.9 Obesity, Class I, BMI 30.0-34.9 (see actual BMI) D49.0 IPMN (intraductal papillary mucinous neoplasm) I35.1 Moderate aortic regurgitation J30.1 Seasonal allergic rhinitis due to pollen E78.2 Mixed hyperlipidemia F41.1 ANABELLA (generalized anxiety disorder) PLAN: HTN, goal below 140/90 (Primary) Controlled Cont amlodipine, atenolol Chronic pain of right knee Sees ortho Discussed low dose tylenol 500-1000 mg twice a day as needed to start Await ortho cont pt Fatty liver - GASTROENTEROLOGY REFERRAL OP As due for f/u Major depressive disorder with single episode, in partial remission (HCC) Cont sertraline Obesity, Class I, BMI 30.0-34.9 (see actual BMI) Follow weights IPMN (intraductal papillary mucinous neoplasm) - GASTROENTEROLOGY REFERRAL OP Moderate aortic regurgitation No symptoms Echo ordered Seasonal allergic rhinitis due to pollen Cont med Mixed hyperlipidemia Cont simvastatin ANABELLA (generalized anxiety disorder) Cont sertraline Follow Up: Return in about 6 months (around 03/23/2023), or if symptoms worsen or fail to improve. discussed covid booster Vickey Ray MD documented in this encounter Nursing Notes * Ronak Fabian CMA - 09/20/2022 8:41 AM EDT Chief Complaint Patient presents with Follow Up 6 month follow up. Patient presents with concerns for his Right knee pain, on going treatment with Dr Hargrove. Patient would like to discuss his BP readings as well, he brought his home cuff for comparison. documented in this encounter Plan of Treatment Upcoming Encounters Date Type Specialty Care Team Description 11/17/2022 Office Visit Orthopedics Rigo Suarez, DO [address] [place] [address] 01/13/2023 Office Visit Dermatology Stephanie Huntley MD [address] [facility] [place] [address] 04/20/2023 Office Visit Internal Medicine Vickey Ray MD [address] [facility] [place] [address] Scheduled Procedures Name Priority Associated Diagnoses Date/Ti me COLONOSCOPY FLEXIBLE PROXIMAL DIAGNOSTIC Recall History of colon polyps Scheduled Referrals Name Type Priority Associated Diagnoses Order Schedule GASTROENTEROLOGY REFERRAL OP Referral Within 30 days (routine) Fatty liver IPMN (intraductal papillary mucinous neoplasm) Ordered: 09/20/2022 Health Maintenance Due Date Last Done Comments COVID-19 Vaccine (4 - Booster for Moderna series) 04/19/2021 02/22/2021, 06/26/2020, 05/29/2020 Depression Screening, Annual for Pts 12 and Over 04/15/2022 04/15/2021 GFR 05/31/2023 05/31/2022, 03/01, 03/05/2021, Additional history exists COLONOSCOPY-EVERY 3 YRS AGES 18-100 06/16/2023 06/16/2020, 06/16/2020, 02/02/2018, Additional history exists DTaP,Tdap,and Td Vaccines (2 - Td or [...] encounter Visit Diagnoses Diagnosis HTN, goal below 140/90- Primary Unspecified essential hypertension Chronic pain of right knee Fatty liver Other chronic nonalcoholic liver 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, in partial remission (HCC) Obesity, Class I, BMI 30.0-34.9 (see actual BMI) Obesity, unspecified IPMN (intraductal papillary mucinous neoplasm) Neoplasm of unspecified nature of digestive system Moderate aortic regurgitation Aortic valve disorders Seasonal allergic rhinitis due to pollen Mixed hyperlipidemia ANABELLA (generalized anxiety disorder) Generalized anxiety disorder documented in this encounter Care Teams Analytical Data Miner Relationship Specialty Start Date End Date Vickey Ray MD [address] [place] [id number] PCP - General Internal Medicine 07/30/19 documented as of this encounter
--- OUTSIDE RECORDS SUMMARY | 2023-03-09 17:55 | External Medical Summary | Summary of Care ---
Author Name Unknown Organization [facility] Address [address] [place] [address] Phone [phone] Care Team Providers Care Tapering Machine Operator Name Role Phone Vickey Ray MD Primary Care Provider + Encounter Details Date Type Department Care Team Description 09/18/2022 Patient Reported Data Patient Survey Ortho [facility] Allergies Active Allergy Reactions Severity Noted Date Comments Dust Mite Extract 06/16/2014 sneezing Neomycin-Bacitracin Zn-Polymyx Rash Medium 07/22/2015 Other Allergy (See Comments) 06/16/2014 Seasonal, --sneezing, watery eyes documented as of this encounter (statuses as of 09/18/2022) Medications Medication Sig Dispensed Refills Start Date [...] ONCE DAILY 48 g 1 07/29/2021 Active Budesonide 0.5 MG/2ML Inhalation Suspension (Pulmicort) Place [...] DAY WITH FOOD 45 Capsule 1 12/20/2021 12/20/2022 Active Azelastine HCl 137 MCG/SPRAY Nasal Solution USE 2 SPRAYS IN BOTH NOSTRILS DAILY NEEDED FOR RHINITIS 90 mL 2 09/09/2022 Active Simvastatin 20 MG Oral Tablet (Zocor)Indications:H TN, goal below 140/90 TAKE 1 TABLET BY MOUTH AT BEDTIME 90 Tablet 2 09/09/2022 Active documented as of this encounter (statuses as of 09/18/2022) Active Problems Problem Noted Date Mild mitral [...] upper back - 2013, BCC &SCC left mormon, back, jawline bilaterally, right neck (distant), others in past HTN, goal below 140/90 02/15/2011 documented as of this encounter (statuses as of 09/18/2022) Resolved Problems Problem Noted Date Resolved Date Mild aortic valve regurgitation 03/04/2021 10/06/2021 Blepharitis of both eyes 09/20/2017 020 Depression with anxiety 01/25/2017 01/26/20 18 Dyslipidemia, goal LDL below 130 02/15/2011 02/11/2014 Allergic rhinitis 02/15/2011 09/20/2017 Hemorrhoids, external without complications 01/2901/25/2017 documented as of this encounter (statuses as of 09/18/2022) Immunizations Name Administration Dates Next Due COVID-19 [...] got money to buy more. Never true 02/20/2019 Within the past 12 months, t he food you bought just didn't last and you didn't have money to get more. Never true 02/20/2019 Sex Assigned at Date Recorded Male 09/19/2018 8:17 AM E DT Job Start Date Occupation Industry Not on file Not on file Not on file documented as of this encounter Plan of Treatment Upcoming Encounters Date Type Specialty Care Team Description 09/20/2022 Office Visit Internal Medicine Vickey Ray MD [address] [place] [address] 11/17/2022 Office Visit Orthopedics Rigo Suarez, [address] [place] [address] 01/13/2023 Office Visit Dermatology Stephanie Huntley MD 200 [facility] [place] [address] Scheduled Procedures Name Priority Associated Diagnoses Date/Ti me COLONOSCOPY FLEXIBLE PROXIMAL DIAGNOSTIC Recall History of colon polyps Health Maintenance Due Date Last Done Comments COVID-19 Vaccine (4 - Booster for Moderna series) 04/19/2021 02/22/2021, 06/26/2020, 05/29/2020 Depression Screening, Annual for Pts 12 and Over 04/15/2022 04/15/2021 GFR - Renal Function 05/31/2023 05/31/2022, 03/11/2022, 03/05/2021, Additional history exists COLONOSCOPY-EVERY 3 YRS AGES 18-100 06/16/2023 06/16/2020, 06/16/2020, 02/02/2018, Additional history exists DTaP,Tdap,and Td Vaccines (2 - Td or Tdap) 03/17/2024 03/17/2014 Albumin/Creatinine Ratio 10/06/2024 10/06/2021, 01/29 Pneumococcal Vaccine: 65+ Years Completed 08/24/2015, 08/12/2014, 01/29/2009 Zoster Vaccines Completed 04/14/2018, 0712/2017, 01/29/2010 Hepatitis C Screening Completed 07/09/2021 Influenza [...] filedocumented as of this encounter Care Teams Tapering Machine Operator Relationship Specialty Start Date End Date Vickey Ray MD 200 [facility] [place] [address] PCP - General Internal Medicine 07/30/19 documented as of this encounter
--- OUTSIDE RECORDS SUMMARY | 2023-03-09 17:55 | External Medical Summary | Summary of Care ---
Author Name Unknown Organization [facility] Address [address] [place] [address] Phone [phone] Care Team Providers Care Contact Acid Plant Operator Helper Name Role Phone Vickey Vail MD Primary Care Provider + Reason for Visit * Reason Comments eRx-Medication Refill Encounter Details Date Type Department Care Team Description 09/09/2022 Refill General Internal Medicine [facility] 200 [facility] [place] [id number] Vickey Vail MD 200 [facility] [id number] HTN, goal below 140/90 Allergies Active Allergy Reactions Severity Noted Date Comments Dust Mite Extract 06/16/2014 sneezing Neomycin-Bacitracin Zn-Polymyx Rash Medium 07/22/2015 Other Allergy (See Comments) 06/16/2014 Seasonal, --sneezing, watery eyes documented as of this encounter (statuses as of 09/09/2022) Medications Medication Sig Dispensed Refills Start Date [...] ONCE DAILY 48 g 1 2 Active Budesonide 0.5 MG/2ML Inhalation Suspension (Pulmicort) [...] on tongue. 14 Tablet 0 2 Active amLODIPine Besylate 5 MG Oral Tablet (Norvasc)Indication s:HTN, goal below 140/90 TAKE 1 TABLET BY MOUTH DAILY 90 Tablet 1 2 Active Atenolol 25 MG Oral Tablet (Tenormin)Indicatio ns:HTN, goal below 140/90 TAKE 1 TABLET BY MOUTH DAILY 90 Tablet 1 2 Active Acitretin 10 MG Oral CapsuleIndications: [...] AT BEDTIME 90 Tablet 2 3 Active Simvastatin 20 MG Oral Tablet (Zocor)Indications: HTN, goal below 140/90 TAKE 1 TABLET BY MOUTH AT BEDTIME 90 Tablet 3 1 09/10/19 23 Discontinued Azelastine HCl 137 MCG/SPRAY Nasal Solution USE 2 SPRAYS IN BOTH NOSTRILS DAILY NEEDED FOR RHINITIS 60 mL 3 1 09/10/19 23 Discontinued documented as of this encounter (statuses as of 09/09/2022) Active Problems Problem Noted Date Mild mitral [...] upper back - 2013, BCC &SCC left hoahaoism, back, jawline bilaterally, right neck (distant), others in past HTN, goal below 140/90 02/15/2011 documented as of this encounter (statuses as of 09/09/2022) Resolved Problems Problem Noted Date Resolved Date Mild aortic valve regurgitation 03/04/2021 10/06/2021 Blepharitis of both eyes 09/20/2017 020 Depression with anxiety 01/25/2017 01/26/20 18 Dyslipidemia, goal LDL below 130 02/15/2011 02/11/2014 Allergic rhinitis 02/15/2011 09/20/2017 Hemorrhoids, external without complications 01/2901/25/2017 documented as of this encounter (statuses as of 09/09/2022) Immunizations Name Administration Dates Next Due COVID-19 [...] encounter Miscellaneous Notes * Telephone Encounter - Christiano Posey [facility] - 09/09/2022 11:51 AM EDT Signed Prescriptions: Disp Refills Azelastine HCl 137 MCG/SPRAY Nasal [id number] mL 2 Sig: USE 2 SPRAYS IN BOTH NOSTRILS DAILY NEEDED FOR RHINITISAuthorizing Provider: VICKEY VAIL User: CHRISTIANO POSEY Simvastatin 20 MG Oral Tablet (Zocor) 90 Tab*2 Sig: TAKE 1 TABLET BYMOUTH AT BEDTIMEAuthorizing Provider: VICKEY VAIL User: CHRISTIANO POSEY documented in this encounter Plan of Treatment Upcoming Encounters Date Type Specialty Care Team Description 09/20/2022 Office Visit Internal Medicine Vickey Vail MD [address] [place] [address] 11/17/2022 Office Visit Orthopedics Rigo Suarez DO [address] [place] [address] 01/13/2023 Office Visit Dermatology Stephanie Huntley MD [address] [place] [address] Scheduled Procedures Name Priority Associated Diagnoses Date/Ti [...] hypertension documented in this encounter Care Teams Contact Acid Plant Operator Helper Relationship Specialty Start Date End Date Vickey Vail MD [address] [place] [address] [place] [address] PCP - General Internal Medicine 07/30/19 documented as of this encounter
--- OUTSIDE RECORDS SUMMARY | 2023-03-09 17:55 | External Medical Summary | Summary of Care ---
Author Name Unknown Organization [facility] Address [address] [place] [address] Phone [phone] Care Team Providers Care Model Set Artist Name Role Phone Vickey Ray MD Primary [...] DO [address] [place] [address] 01/13/2023 Office Visit Dermatology Stephanie Huntley MD 200 [facility] [place] [address] 04/20/2023 Office Visit Internal Medicine Vickey Ray MD 200 [facility] [place] [address] Scheduled Procedures Name Priority Associated Diagnoses Date/Ti [...] filedocumented as of this encounter Care Teams Model Set Artist Relationship Specialty Start Date End Date Vickey Ray MD 200 [facility], [place] [phone] PCP - General Internal Medicine 07/30/19 documented as of this encounter
--- OUTSIDE RECORDS SUMMARY | 2023-03-09 17:55 | External Medical Summary | Summary of Care ---
Author Name Unknown Organization [facility] Address [address] [place] [address] Phone [phone] Care Team Providers Care Inside Sales Account Representative Name Role Phone Vickey Ray MD Primary Care Provider + Reason for Visit * Reason Comments Follow Up Right knee Encounter Details Date Type Department Care Team Description 09/06/2022 Office Visit Orthopaedics [facility] [address] [place] [address] Daniel Hargrove MD [address] [place] [address] Primary osteoarthritis of right knee* Allergies Active Allergy Reactions Severity Noted Date Comments Dust Mite Extract 06/16/2014 sneezing Neomycin-Bacitracin Zn-Polymyx Rash Medium 07/22/2015 Other Allergy (See Comments) 06/16/2014 Seasonal, --sneezing, watery eyes documented as of this encounter (statuses as of 09/12/2022) Medications Medication Sig Dispensed Refills Start Date [...] 45 Capsule 1 2 12/21/19 23 Active Simvastatin 20 MG Oral Tablet (Zocor)Indications: HTN, goal below 140/90 TAKE 1 TABLET BY MOUTH AT BEDTIME 90 Tablet 3 1 09/10/19 23 Discontinued Azelastine HCl 137 MCG/SPRAY Nasal Solution USE 2 SPRAYS IN BOTH NOSTRILS DAILY NEEDED FOR RHINITIS 60 mL 3 1 09/10/19 Discontinued documented as of this encounter (statuses as of 09/12/2022) Active Problems Problem Noted Date Mild mitral [...] upper back - 2013, BCC &SCC left quaker, back, jawline bilaterally, right neck (distant), others in past HTN, goal below 140/90 02/15/2011 documented as of this encounter (statuses as of 09/12/2022) Resolved Problems Problem Noted Date Resolved Date Mild aortic valve regurgitation 03/04/2021 10/06/2021 Blepharitis of both eyes 09/20/2017 04 020 Depression with anxiety 01/25/2017 01/26/20 18 Dyslipidemia, goal LDL below 130 02/15/2011 02/11/2014 Allergic rhinitis 02/15/2011 09/20/2017 Hemorrhoids, external without complications 01/2901/25/2017 documented as of this encounter (statuses as of 09/12/2022) Immunizations Name Administration Dates Next Due COVID-19 [...] as of this encounter Progress Notes * Daniel Hargrove MD - 09/06/2022 8:16 AM EDT Topher Rubin Jr. [id number] Topher Rubin Jr. is a 76 year old male who presents for f/u to [facility] for right knee injury/pain. I saw him initially for this on 11/10/2021 Most recent complete visit 08/16/2022 Topher Rubin Jr. is here unaccompanied Quality: reviewed and agree with Nursing Notes for HPI elements History: History on 11/10/2021 - Presents to Orthopaedic Urgent [facility] ([facility]in [facility]). R knee injury. States that pain began hurtingduring a twisting motion while golfing. Pain is located on medial side of R knee. States pain is 7/10. No relief with Ice. Would like to know what is going on. States that he has had injections priorand states that he would like them again. Will not get surgery. *Injection in L knee given 03/24/2020 Additional history 05/31/2022 Believes injection helped some but not substantially. Pain is greatest along the anteromedial joint. Does not specifically have locking. He is concerned about a meniscal injury. This did aggravate him during golf which problematic as he likes golf. Additional history 07/04/2022: Pt presents today to review MRI results of right knee and course of action . Pain 7/10. Not gettingany better. No current knee locking Since that visit patient was seen most recently on 07/19/2022 for completion of viscosupplementation in the right knee with Euflexxa. Patient is only noted mild improvement in symptoms with that. Continues to have pain greatest along the medial joint line. Limited symptoms within the popliteal region as well. He has not yet started physical therapy as he prefers to wait for consultation with Dr. Lionel Lua MD (orthopedic surgery, sports medicine) Additional history 08/16/2022 Patient presents today for f/u on right knee. States knee 'gets worse as the days go on Since that visit: Was seen by my colleague Dr. Lionel Lua MD (orthopedic surgery, sports medicine) on 08/31/2022. I have read that note in summary based on the evaluation is suspected that his primary diagnosis was DJD of the medial compartment of the knee causing a degenerative meniscal tear. Patient was recommended to continue following conservative care and seek evaluation with with an arthroplasty specialist if he failed conservative treatment. ROS: ROS per HPI otherwise non-contributory Past Medical History: Diagnosis Date Allergic rhinitis 02/15/2011 Benign neoplasm of colon 10/18/12 COLONOSCOPY FLEXIBLE PROXIMAL DIAGNOSTIC performed by Scott Barboza DO at [facility], hyperplastic polyps repeat colonoscopy in 5 years Blepharitis of both eyes 09/20/2017 Depression with anxiety 01/25/2017 Diastolic dysfunction 03/04/2021 Dyslipidemia, goal LDL below 130 02/15/2011 Hemorrhoids, external without complications 02/15/2011 HTN, goal below 140/90 02/15/2011 IPMN (intraductal papillary mucinous neoplasm) 06/11/2014 Mild mitral regurgitation 05/06/2022 Family History Problem Relation Age of Onset Heart attack Father 53 Hypertension Mother Allergies Uncle (Paternal) No Known Problems Son Social History Socioeconomic History Marital status: Spouse name: Alicia Number of children: 1 Years of education: Not on file Highest education level: Not on file Occupational History 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 Mildly complex RIGHT medial meniscal body and posterior horn tear. Associated torn meniscal flapextension at the level of the meniscal body into the meniscofemoral recess. 2. Moderate medial and mild patellofemoral compartment chondrosis. 11/10/2021: Three-view x-ray right knee FINDINGS: Bones/joints: Moderate medial compartment narrowing and spurring. Faint chondrocalcinosis. No lytic or sclerotic bone lesion. No acute osseous or joint abnormality. Soft tissues: Normal. IMPRESSION IMPRESSION: Osteoarthritis. Assessment and Plan: 1) right knee injury When I initially saw him for an [...] doing relatively well He has both medial pharmaceutical engineer brace and a hinge brace. In general pharmaceutical engineer brace helps more except when golfing. Hinge feels better golfing As noted above was seen by my colleague Dr. Lionel Lua MD (orthopedic surgery, sports medicine) who did not think he would benefit from arthroscopy. Suspected majority of symptoms are related to DJD not the degenerative meniscal tear. If conservative treatments are not able to control his symptoms would recommend consultation with an arthroplasty specialist He will follow-up p.r.n. Previous Medication recommendations provided: Tylenol (Acetaminophen) Regular Strength 325 mg (1-2 tablets up to 3 times per day)and/or Ibuprofen 200mg (1-3 tab up to 3 times per day) with food (No other over the counter NSAID medications) Okay to take these medications at the same time or alternate. Use the lowest amount of medication as infrequently as possible to control your pain at a tolerablelevel Do not take Tylenol if drinking more than 3 alcohol drinks daily You can also try topical Voltaren gel (Diclofenac Sodium Topical Gel) which is over the counter up to 4 times per day Daniel Hargrove MD Primary Care Sports Medicine [facility] [address] [facility] [address] documented in this encounter Nursing Notes * Nara Dumas RN - 09/06/2022 8:09 AM EDT Pt presents today with f/u right knee pain. Wearing right knee brace. Has no pain today. Nara Dumas RN documented in this encounter Plan of Treatment Upcoming Encounters Date Type Specialty Care Team Description 09/20/2022 Office Visit Internal Medicine Vickey Ray MD 200 [facility] [address] 11/17/2022 Office Visit Orthopedics Rigo Suarez DO [address] [place] [address] 01/13/2023 Office Visit Dermatology Stephanie Huntley MD 200 [place] [address] Scheduled Procedures Name Priority Associated Diagnoses Date/Ti [...] 08/24/2015, 08/12/2014, 01/29/2009 Zoster Vaccines Completed 04/14/2018, 07/0 12/2017, 01/29/2010 Hepatitis C Screening Completed 07/09/2021 [...] knee- Primary Primary localized osteoarthrosis, lower leg documented in this encounter Care Teams Inside Sales Account Representative Relationship Specialty Start Date End Date Vickey Ray MD 200 [place] [address] PCP - General Internal Medicine 07/30/19 documented as of this encounter
--- OUTSIDE RECORDS SUMMARY | 2023-03-09 17:55 | External Medical Summary | Summary of Care ---
Author Name Unknown Organization [facility] Address [address] [place] [address] Phone [phone] Care Team Providers Care Battery Plate Assembler Name Role Phone Vickey Ray MD Primary [...] upper back - 2013, BCC &SCC left yazidism, back, jawline bilaterally, right neck (distant), others [...] DO [address] [place] [address] 01/13/2023 Office Visit Dermatology Stephanie Huntley MD 200 [facility] [place] [address] 04/20/2023 Office Visit Internal Medicine Vickey Ray MD 200 [facility] [place] [address] Scheduled Procedures Name Priority Associated Diagnoses Date/Ti [...] filedocumented as of this encounter Care Teams Battery Plate Assembler Relationship Specialty Start Date End Date Vickey Ray MD 200 [place] [address] PCP - General Internal Medicine 07/30/19 documented as of this encounter
--- OUTSIDE RECORDS SUMMARY | 2023-03-09 17:55 | External Medical Summary | Summary of Care ---
Author Name Unknown Organization [facility] Address [address] [place] [address] Phone [phone] Care Team Providers Care Acid Condenser Name Role Phone Vickey Ray MD Primary [...] upper back - 2013, BCC &SCC left moravian, back, jawline bilaterally, right neck (distant), others [...] DO [address] [place] [address] 01/13/2023 Office Visit Dermatology Stephanie Huntley MD 200 [facility] [place] [address] 04/20/2023 Office Visit Internal Medicine Vickey Ray MD 200 [facility] [place] [address] Scheduled Procedures Name Priority Associated Diagnoses Date/Ti [...] filedocumented as of this encounter Care Teams Acid Condenser Relationship Specialty Start Date End Date Vickey Ray MD 200 [place] [address] PCP - General Internal Medicine 07/30/19 documented as of this encounter
== END 2023-03-04 10:12 | disposition home or self-care (01) ==
LOC: ASU 09:09 → 3E 09:09